=== PATIENT | female | born 1935 | race Caucasian/White ===

== ENCOUNTER 2016-09-01 23:12 | Inpatient (IN) | payer MEDICARE, BC ==
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
[2016-09-01] MEDS ORDERED: SODIUM CHLORIDE 0.9% 1,000 ML IV STA (23:40)
[2016-09-01] MEDS ORDERED: SODIUM CHLORIDE 0.9% 500 ML IV STA (23:40)
[2016-09-02 00:26] LABS: Basophils # (A) 0.1 k/uL (0-0.2); Basophils % (A) 0 %; CH 29.5; CHCM 32.9; Eosinophils % (A) 0 %; HDW 2.29; HGB 14.3 gm/dL (11.4-16.0); Luc # (Auto) 0.16; Luc % (Auto) 1; Lymphocytes # (A) 2.4 k/uL (1.0-4.8); Lymphocytes % (A) 18 %; MCH 29.9 pg (25.0-35.0); MCHC 33.1 g/dL (31.0-37.0); MCV 90.2 fL (80.0-100.0); Mean Platelet Volume 7.3; Monocytes # (A) 0.4 k/uL (0-1.0); Monocytes % (A) 3 %; Neutrophils # (A) 10.3 k/uL (1.3-7.7); Neutrophils % (A) 77 %; RBC 4.77 m/uL (3.80-5.40); RDW 14.1 % (11.5-15.5); WBC 13.4 k/uL (3.8-10.6); WBC (Perox) 13.17
[2016-09-02 00:33] LABS: Appearance,Urine Clear (Clear); Bacteria,Urine Rare /hpf; Bilirubin,Urine Negative (Negative); Calcium Oxalate Crystals,Urine Rare /hpf; Glucose,Urine (UA) Negative (Negative); Ketones,Urine Negative (Negative); Leukocyte Esterase,Urine Small (Negative); Mucus,Urine Few /hpf; Nitrite,Urine Negative (Negative); PH, Urine 5.5 (5.0-8.0); Particle Count 2770; Protein,Urine Negative (Negative); RBC,Urine <1 /hpf (0-5); Squamous Epithelial Cell,Urine 2 /hpf (0-4); UA Billing (MACRO vs. MICRO) MICRO; Urobilinogen,Urine <2.0 mg/dL (<2.0); WBC,Urine 3 /hpf (0-5)
[2016-09-02 00:35] LABS: INR 1.1 (<1.1); Partial Thromboplastin Time 22.9 sec (22.0-30.0); Prothrombin Time 10.8 sec (9.0-12.0)
[2016-09-02 00:41] LABS: ALT 38 U/L (9-52); AST 23 U/L (14-36); Acetaminophen <10.0 ug/mL; Alcohol <10 mg/dL; Alkaline Phosphatase 100 U/L (38-126); Anion Gap 14 mmol/L; Blood Urea Nitrogen 21 mg/dL (7-17); Calcium 10.7 mg/dL (8.4-10.2); Carbon Dioxide 24 mmol/L (22-30); Chloride 103 mmol/L (98-107); Glucose 112 mg/dL (74-99); Magnesium 2.1 mg/dL (1.6-2.3); Non-African American GFR(MDRD) >60 (>60 ml/min/1.73 sqM); Phosphorous 2.8 mg/dL (2.5-4.5); Potassium 4.1 mmol/L (3.5-5.1); Salicylate <1.0 mg/dL; Sodium 141 mmol/L (137-145); Total Bilirubin 1.8 mg/dL (0.2-1.3); Total Protein 8.4 g/dL (6.3-8.2)
[2016-09-02 00:55] LABS: Creatine Kinase 24 U/L (30-135)
[2016-09-02 01:09] LABS: Creatine Kinase MB 0.7 ng/mL (0.0-2.4); Troponin I <0.012 ng/mL (0.000-0.034)
[2016-09-02] MEDS ORDERED: ACETAMINOPHEN TAB 325 MG TAB PO PRN (03:59)
[2016-09-02] MEDS ORDERED: MAG HYDROX/AL HYDROX/SIMETH 30 ML CUP PO PRN (03:59)
[2016-09-02] MEDS ORDERED: ZIPRASIDONE 20 MG VIAL IM PRN (03:59)
[2016-09-02] MEDS ORDERED: MAGNESIUM HYDROXIDE 2,400 MG/10 ML CUP PO PRN (03:59)
[2016-09-02] MEDS ORDERED: LORazepam 1 MG TAB PO PRN (04:01)
[2016-09-02] MEDS ORDERED: LORazepam 2 MG/ML SYRINGE IM PRN (04:01)
[2016-09-02 05:21] VITALS: BMI 25.5
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
[2016-09-02] MEDS: LOSARTAN 50 MG TAB PO SCH (12:01)
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
[2016-09-02] MEDS ORDERED: QUEtiapine 25 MG TAB PO SCH (21:00)
[2016-09-03] MEDS: LOSARTAN 50 MG TAB PO SCH (09:41)
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
[2016-09-03] MEDS: DONEPEZIL 10 MG TAB PO SCH (20:18)
[2016-09-03] MEDS: DIVALPROEX 250 MG TABLET.DR PO SCH (20:18)
--- NOTE | 2016-09-04 08:14 | P.PN ---
Progress Note - Text Interval history: The patient is found in the [facility] seated alone watching TV. She reports her mood is fine. Again she is a partial historian due to her known diagnosis of major neurocognitive disorder. She feels that she slept well last night she indicates having a decreased appetite. She reports no symptoms of dizziness or physical pain. Staff report she has been able to ambulate without ataxia. No agitated behavior reported by staff over the evening hours. She states she has not been in contact with her and states "I don't want to see him". She is not aware of what medications she is taking but states she has been compliant. Again she does not appreciate her presenting symptoms to this mental health unit. Mental status exam: The patient is alert she is pleasant cooperative grooming is improved she is dressed in hospital gowns however. She is soft-spoken. Eye contact is appropriate. She has a smiling affect. She continues to endorse fearfulness regarding her . Insight and judgment are impaired. Cognitively she remains impaired. She is oriented to year as 2020, she was able to name the day of the week and the month. She could not recall my name despite me introducing myself again at the beginning of the session. She is not aware of her current location with the reason she was admitted. She demonstrates no verbal or physical aggressiveness. She indicates feeling safe here. Plan: We will continue the Depakote at bedtime. This is being used to stabilize mood symptoms that appeared manic in nature. Her states that she has been increasingly demonstrating more mood swings irritability and sexual preoccupation. She may require use of an antipsychotic. He states that she can be excessively fatigued at home. Her voiced a willingness to have her return home. Social work was asked to contact him to share information regarding community resources for in-home services/respite care. Vital signs reviewed. We will continue to monitor the patient for safety.
[2016-09-04] MEDS: LOSARTAN 50 MG TAB PO SCH (08:21)
--- NOTE | 2016-09-04 16:23 | P.PN ---
Progress Note - Text SUBJECTIVE: I reviewed the medical record, interviewed Ms. Wolf and discussed her treatment and treatment plan during team meeting. I am cross covering for Dr. Barreto. She is an 81-year-old woman who has a history of a major neurocognitive disorder. She presented to unit with paranoia, agitation and paranoid delusional beliefs. She complained of feeling tired but did not think it was related to her current medications. She remembered that Dr. Barreto was her psychiatrist. OBJECTIVE: She presented as a frail-appearing elderly female who was pleasant on approach. She was sitting comfortably on the bed in her room. She maintained eye contact and attended to the interview. She had no distinguishing features or prominent physical abnormalities. She had a bright facial expression. She was alert and oriented to person. She showed no abnormality of psychomotor activity. Her speech was nonspontaneous but had normal rate, rhythm and volume. Her affect was bright, stable and appropriate. She denied suicidal ideation or wishes. She did not express ideas reference or paranoid ideation. Her thinking was concrete and her associations were coherent and logical. She denied hallucinations and did not appear to responding to internal stimuli. ASSESSMENT: She is not agitated and not expressing paranoid believes. She may be experiencing sedation from the current dose of Depakote. PLAN: Continue inpatient hospitalization. Continue Depakote 250 mg at bedtime and her Aricept 10 mg at bedtime. criminal justice social worker to coordinate aftercare. Encourage participation in therapeutic groups and activities as tolerated. Evaluate clinical status response to treatment daily basis.
[2016-09-04] MEDS: DIVALPROEX 250 MG TABLET.DR PO SCH (21:34)
[2016-09-04] MEDS: DONEPEZIL 10 MG TAB PO SCH (21:34)
[2016-09-05] MEDS: LOSARTAN 50 MG TAB PO SCH (09:28)
--- NOTE | 2016-09-05 17:29 | P.PN ---
Progress Note - Text SUBJECTIVE: I reviewed the medical record and interviewed Ms. Wolf. I am cross covering for Dr. Barreto. She is an 81-year-old woman who has a history of a major neurocognitive disorder. She presented to unit with paranoia, agitation and paranoid delusional beliefs. She is pleasant on approach and denied problems or concerns. She was unable to explain the reason for hospitalization. OBJECTIVE: She presented as a frail-appearing elderly female who was pleasant on approach.. She maintained eye contact and attended to the interview. She had no distinguishing features or prominent physical abnormalities. She had a bright facial expression. She was alert and oriented to person, month and year. She does not remember the name of the hospital and appeared puzzled when I informed her that she is at a hospital. She showed no abnormality of psychomotor activity. Her speech was nonspontaneous but had normal rate, rhythm and volume. Her affect was bright, stable and appropriate. She denied suicidal ideation or wishes. She did not express ideas reference or paranoid ideation. Her thinking was concrete and her associations were coherent and logical. She denied hallucinations and did not appear to responding to internal stimuli. ASSESSMENT: She is not agitated and not expressing paranoid believes. PLAN: Continue inpatient hospitalization. Continue Depakote 250 mg at bedtime and her Aricept 10 mg at bedtime. molding utility worker to coordinate aftercare. Encourage participation in therapeutic groups and activities as tolerated. Evaluate clinical status response to treatment daily basis.
[2016-09-05] MEDS: DIVALPROEX 250 MG TABLET.DR PO SCH (20:50)
[2016-09-05] MEDS: DONEPEZIL 10 MG TAB PO SCH (20:50)
[2016-09-06] MEDS: LOSARTAN 50 MG TAB PO SCH (10:06)
--- NOTE | 2016-09-06 13:12 | P.PN ---
Progress Note - Text SUBJECTIVE: I reviewed the medical record and interviewed Ms. Wolf. I am cross covering for Dr. Barreto. She was reluctant to speak with me today. However, she denied problems or concerns. OBJECTIVE: She presented as a frail-appearing elderly female who was pleasant on approach.. She maintained eye contact and attended to the interview. She had no distinguishing features or prominent physical abnormalities. She had a bright facial expression. She was alert and oriented to person. She showed psychomotor slowing but no involuntary abnormal movements. Her speech was nonspontaneous and had decreased rate and volume. Her affect was blunted, stable and appropriate. She denied suicidal ideation or wishes. She did not express ideas reference or paranoid ideation. Her thinking was concrete and her associations were coherent and logical. She denied hallucinations and did not appear to responding to internal stimuli. ASSESSMENT: She is not agitated and not expressing paranoid beliefs or ideation. PLAN: Continue inpatient hospitalization. Continue Depakote 250 mg at bedtime and her Aricept 10 mg at bedtime. mop worker to coordinate aftercare. Encourage participation in therapeutic groups and activities as tolerated. Evaluate clinical status response to treatment daily basis.
[2016-09-06] MEDS: DIVALPROEX 250 MG TABLET.DR PO SCH (21:52)
[2016-09-06] MEDS: DONEPEZIL 10 MG TAB PO SCH (21:52)
[2016-09-07] MEDS: LOSARTAN 50 MG TAB PO SCH (10:16)
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
[2016-09-07] MEDS: DONEPEZIL 10 MG TAB PO SCH (21:52)
[2016-09-07] MEDS: DIVALPROEX 250 MG TABLET.DR PO SCH (21:52)
[2016-09-08] MEDS: LOSARTAN 50 MG TAB PO SCH (10:31)
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
[2016-09-08] MEDS ORDERED: DIVALPROEX 500 MG TABLET.DR PO SCH (21:00)
[2016-09-08] MEDS: DONEPEZIL 10 MG TAB PO SCH (22:32)
[2016-09-09] MEDS: LOSARTAN 50 MG TAB PO SCH (10:52)
--- NOTE | 2016-09-09 16:02 | P.PN ---
Progress Note - Text SUBJECTIVE: I reviewed the medical record and interviewed Ms. Wolf. I am cross covering for Dr. Barreto. She continues to maintain that she does not want to return home. When I asked if she were afraid of her she nodded her head "yes." She denied other problems or concerns. I explained that if she does not wish to return to her home then our only option would be an AFC home. She asked reasonable questions about AFC home. OBJECTIVE: She presented as a frail-appearing elderly female who was pleasant on approach.. She maintained eye contact and attended to the interview. She had no distinguishing features or prominent physical abnormalities. She had a t bright facial expression. She was alert and oriented to person. She showed psychomotor slowing but no involuntary abnormal movements. Her speech was spontaneous with decreased rate and volume. Her affect was bright, stable and appropriate. She denied suicidal ideation or wishes. She did not express ideas reference or paranoid ideation. Her thinking was concrete and her associations were coherent and logical. She denied hallucinations and did not appear to responding to internal stimuli. The psychologist social spoke with her son. He is perusing emergency guardianship. He does not want her discharge directly to an AFC home. She will live with him temporarily. ASSESSMENT: She continued to demonstrate impairments in orientation, concentration and memory consistent with the diagnoses of major neurocognitive disorder. She is paranoid about her and refusing to return home. PLAN: Continue inpatient hospitalization. Obtain serum valproic acid level. Cont. Depakote to 500 mg at bedtime. Continue Aricept 10 mg at bedtime. shore worker to assist family with AFC placement Encourage participation in therapeutic groups and activities as tolerated. Evaluate clinical status response to treatment daily basis.
[2016-09-09] MEDS ORDERED: VALPROIC ACID ORAL SOLN 250 MG/5 ML CUP PO SCH (21:00)
[2016-09-09] MEDS: DONEPEZIL 10 MG TAB PO SCH (21:02)
[2016-09-10] MEDS: LOSARTAN 50 MG TAB PO SCH (09:50)
[2016-09-10] MEDS ORDERED: VALPROIC ACID ORAL SOLN 250 MG/5 ML CUP PO SCH (12:03)
[2016-09-10] MEDS: DONEPEZIL 10 MG TAB PO SCH (21:20)
[2016-09-10] MEDS: VALPROIC ACID ORAL SOLN 250 MG/5 ML CUP PO SCH (21:20)
[2016-09-11] MEDS: LOSARTAN 50 MG TAB PO SCH (09:52)
--- NOTE | 2016-09-11 16:44 | P.PN ---
Progress Note - Text SUBJECTIVE: I reviewed the medical record and interviewed Ms. Wolf. I am cross covering for Dr. Barreto. She is pleasant and cooperative but continues to maintain that she does not want to return home. I explained that social workers in contact with her son. Her son is interested in her living with him temporarily but is looking for assistance from other family. She reported that she has difficulty with swallowing pills. OBJECTIVE: She presented as a frail-appearing elderly female who was pleasant on approach.. She maintained eye contact and attended to the interview. She had no distinguishing features or prominent physical abnormalities. She had a t bright facial expression. She was alert and oriented to person. She showed psychomotor slowing but no involuntary abnormal movements. Her speech was spontaneous with decreased rate and volume. Her affect was bright, stable and appropriate. She denied suicidal ideation or wishes. She did not express ideas reference or paranoid ideation. Her thinking was concrete and her associations were coherent and logical. She denied hallucinations and did not appear to responding to internal stimuli. Serum valproic acid level 77.5 ASSESSMENT: She continued to demonstrate impairments in orientation, concentration and memory consistent with the diagnoses of major neurocognitive disorder. She is paranoid about her and refusing to return home. PLAN: Continue inpatient hospitalization. Change Depakote to valproic acid syrup and decrease the dose to 250 mg at bedtime . Continue Aricept 10 mg at bedtime. distillery worker general to assist family with AFC placement Encourage participation in therapeutic groups and activities as tolerated. Evaluate clinical status response to treatment daily basis.
[2016-09-11] MEDS: VALPROIC ACID ORAL SOLN 250 MG/5 ML CUP PO SCH (20:39)
[2016-09-11] MEDS: DONEPEZIL 10 MG TAB PO SCH (20:39)
[2016-09-12] MEDS: LOSARTAN 50 MG TAB PO SCH (09:34)
--- NOTE | 2016-09-12 19:13 | P.PN ---
Progress Note - Text Date of service: 09/12/2016 Chief complaint: "I feel tired today" Subjective: The patient has been seeing today as follow-up, chart reviewed, case discussed with the treatment team. The patient has been seen in her room to go see wasn' t able to come to see me at my office. Patient stated that she feels very tired and sleepy because she didn't get enough sleep last night. Patient attributed her poor sleep to another patient who came last night and was very loud and the patient couldn't sleep at night. Patient endorses still depressed , minimize suicidal thoughts. The patient denies any manic symptoms including sustained period of time with elevated or irritable mood. The patient denies any auditory or visual hallucinations. Also the patient denies any paranoid ideation. Review of other systems: Patient denies any physical symptoms besides what has been mentioned above. No problems was presenting no chest pain reported today. Objective: Vitals has been reviewed. Mental status examination; Appearance: The patient appears stated age, or showed a disheveled, no specific features. Gait/posture: Patient was seen at bed, Normal arm was swinging: No abnormal movements. Attitude and behavior: Not engaged, not cooperative, poor eye contact. Motor activity: Decreased psychomotor activity Speech: Soft, low tone Mood: Depressed Affect: Constricted Thought form: goal-directed, linear, coherent. Thought content: Non-delusional, denies suicidal thoughts, denies homicidal thoughts, denies intentions or plans. Perception: Denies any auditory or visual hallucinations Attention: No impairment. Patient was able to repeat serial 7. Orientation: Patient patient was fully oriented to time place person and situation. Insight: Patient has limited insight about his psychiatric disorder. Judgment: Patient has limited judgment about his psychiatric treatment. Assessment: Psychosis NOS. Plan: Continue current management. Continue Depakote at bedtime as a mood stabilizer. Encourage patient for more engagement in treatment.
[2016-09-12] MEDS: VALPROIC ACID ORAL SOLN 250 MG/5 ML CUP PO SCH (21:35)
[2016-09-12] MEDS: DONEPEZIL 10 MG TAB PO SCH (21:35)
[2016-09-13] MEDS: LOSARTAN 50 MG TAB PO SCH (09:45)
--- NOTE | 2016-09-13 16:40 | P.PN ---
Progress Note - Text Date of service: 09/13/2016 Chief complaint: "I still feel tired, but I am up today" Subjective: The patient has been seen today as follow-up, chart reviewed, case discussed with the treatment team. Patient reports is still feel tired, and fatigue but she is slightly better than yesterday. Patient endorses still feeling depressed and feeling hopeless. Patient was very slow in her movement and she took very long time to answer questions. The patient denies suicidal or homicidal ideation. The patient denies auditory or visual hallucinations. Patient reports history of thyroid delusions but denies any current paranoid ideation. Patient reports has better sleep, and her appetite is better today. Review of other systems: Patient denies any physical symptoms besides what has been mentioned above. No breathing problems , no chest pain reported today. Objective: Vitals has been reviewed. Mental status examination; Appearance: The patient appears stated age, or showed a disheveled, no specific features. Gait/posture: Very slow gait, no arm was swinging while walking. Attitude and behavior: Not engaged, partially cooperative, poor eye contact. Motor activity: Decreased psychomotor activity Speech: Soft, low tone Mood: Depressed Affect: Constricted Thought form: goal-directed, linear, coherent. Thought content: Non-delusional, denies suicidal thoughts, denies homicidal thoughts, denies intentions or plans. Perception: Denies any auditory or visual hallucinations Orientation: Patient patient was fully oriented to time place person and situation. Insight: Patient has limited insight about his psychiatric disorder. Judgment: Patient has limited judgment about his psychiatric treatment. Assessment: Psychosis NOS. Plan: Continue current management. Continue Depakote at bedtime as a mood stabilizer. Aricept for cognitive impairment. Losartan for high blood pressure. Encourage patient for more engagement in treatment.
[2016-09-13] MEDS: DONEPEZIL 10 MG TAB PO SCH (21:34)
[2016-09-13] MEDS: VALPROIC ACID ORAL SOLN 250 MG/5 ML CUP PO SCH (21:34)
--- NOTE | 2016-09-14 09:43 | P.PN ---
Progress Note - Text Interval history: The patient is found in the hallway she follows me to an interview room. She reports that she is doing fine and that she would like to stay here for a long period of time. She states she does not want to return home and she reports she refused to visit from her . She has been speaking with her son. A Depakote level was obtained in my absence that result was reviewed progress notes were reviewed. She has no questions or concerns regarding her medication. Mental status exam: The patient is alert she is dressed in a bathrobe eye contact is appropriate she ambulates slowly but without ataxia. Eye contact is good. She does demonstrate a limited range of facial expression. She speaks softly. She continues to demonstrate significant cognitive impairment short- term memory is severely impaired. She continues to express some fearfulness of returning home. She demonstrates no verbal or physical aggressiveness. She is oriented to day the week as being "Wednesday". Insight and judgment are impaired. Plan: The patient will continue on her current psychotropic medications. I will confer with social work during team meeting regarding discharge planning. We will explore any placement opportunities other than returning home. Vital signs reviewed. Level results reviewed. We will continue to assess her for safety.
[2016-09-14] MEDS: LOSARTAN 50 MG TAB PO SCH (10:02)
[2016-09-14] MEDS: VALPROIC ACID ORAL SOLN 250 MG/5 ML CUP PO SCH (22:09)
[2016-09-14] MEDS: DONEPEZIL 10 MG TAB PO SCH (22:09)
[2016-09-15 06:52] VITALS: BP 130/69; PULSE 80; RESP 18; TEMP 97.9
[2016-09-15] MEDS: LOSARTAN 50 MG TAB PO SCH (10:06)
--- NOTE | 2016-09-15 11:24 | P.DS ---
Providers Date of admission: 09/02/16 03:34 Expected date of discharge: 09/15/16 Attending physician: Miguel Angel Barreto Consults: 09/02/16 04:04 Consult Physician Routine Consulting Provider: Costa Zarate Reason/Comments: h&p and medical follow-up, possible uti Do you want consulting provider notified?: Yes, Notify in am Primary care physician: Stated None - Discharge Diagnosis(es) (1) Unspecified psychosis Current Visit: Yes Status: Acute Priority: High (2) Major neurocognitive disorder Current Visit: Yes Status: Acute Priority: High Hospital Course: Brief summary of admission note: This patient is a 81-year-old female who was admitted to the mental health unit through the emergency room for acute symptoms of psychosis in the context of presumed major neurocognitive disorder. The patient was petitioned by a police surgeon. She apparently reported she was having an affair, she felt her was threatening her, she alleged her was trying to kill her. The patient presented demonstrating manic-like symptoms. She demonstrated fluctuation of mood and affect, she was sexually preoccupied. For full details please refer to the psychiatric evaluation dictated 09/02/2016. Summary of hospital course: The patient presented to the mental health unit in voluntarily. A second clinical certificate was completed. I believe the patient did defer at the deferral conference. Initially she was started on Seroquel at bedtime. After speaking with her it appears that she had been struggling with excessive sleep at home prior to the admission. We decided to discontinue the Seroquel and I initiated Depakote to control some of her behavioral symptoms that were manic-like in nature. The patient tolerated the medication Depakote level was obtained. The patient was pleasant and cooperative on the mental health unit. She does continue to demonstrate symptoms of confusion as part of her neurocognitive disorder. She was seen for a routine medical consultation. Her antihypertensive medication was continued. I spoke to her and son via phone on separate occasions to discuss the patient's past history and current care. Her son plans to take her back to his home with additional family support. He plans on having her follow up with a geriatric neurologist upon discharge. We discussed her current diagnosis medication and future medication options. Her son's questions were answered. Social work has had several conversations with family members as well as part of the treatment and discharge planning process. Mental status exam: The patient is an alert and pleasant cooperative female appearing her stated age. She seated calmly. She is soft-spoken. She states her mood is "good". Affect is congruent. She reports having no suicidal or homicidal ideation intent or plan. She does still seem to have some paranoid thinking regarding her . She reports feeling safe here in the hospital. She demonstrates no verbal or physical aggressiveness. She continues to demonstrate significant short-term memory impairment. She has some spontaneous speech but mainly answers questions asked. She demonstrates no flight of ideas. There can be some tangential thought. Impressions 1. Psychosis unspecified, major neurocognitive disorder 2. Hypertension 3. Psychosocial dysfunction secondary to major neurocognitive disorder Plan: The patient will be discharged from the mental health unit today she will reside with her son and he does have additional family support to care for the patient during the day. She will continue on Aricept 10 mg daily, Depakene syrup 250 mg at bedtime. Social work will arrange outpatient mental health follow-up. The patient will follow up with a primary care physician her son intends on having her follow up with a geriatric neurologist. We discussed the options in terms of medication management. We discussed that she may require use of an antipsychotic medication if her behavior does not stabilize. There is no imminent safety risk she is appropriate for transition to outpatient care. She is able to return to the emergency room with any acute safety concerns. Patient Condition at Discharge: Stable Plan - Discharge Summary New Discharge Prescriptions: Donepezil [Aricept] 10 mg PO HS #30 tab Losartan Potassium 100 mg PO DAILY #30 tablet Valproic Acid Oral Soln [Depakene Syrup] 250 mg PO HS #150 ml Discharge Medication List Donepezil [Aricept] 10 mg PO HS #30 tab 09/15/16 [Rx] Losartan Potassium 100 mg PO DAILY #30 tablet 09/15/16 [Rx] Valproic Acid Oral Soln [Depakene Syrup] 250 mg PO HS #150 ml 09/15/16 [Rx] Follow up Appointment(s)/Referral(s): None,Stated [Primary Care Provider] - 1 Week Patient Instructions/Handouts: Brief Psychotic Disorder (DC) Activity/Diet/Wound Care/Special Instructions: Take medications as prescribed. Notify the crisis line or your care provider if symptoms worsen. Crisis line no. . Regular diet. Activity as tolerated.
== END 2016-09-15 18:47 | disposition home or self-care (01) | DRG 885 ==
LOC: EC 23:12 → 3MHU 09-02 03:34
PROVIDERS: ADMIT Psychiatry & Neurology Psychiatry; ATTEND Psychiatry & Neurology Psychiatry
DX: F29 Unspecified psychosis not due to a substance or known physiological condition (principal); R45.851 Suicidal ideations; F01.50 Vascular dementia, unspecified severity, without behavioral disturbance, psychotic disturbance, mood disturbance, and anxiety; I10 Essential (primary) hypertension; R41.0 Disorientation, unspecified; F32.9 Major depressive disorder, single episode, unspecified; Z79.899 Other long term (current) drug therapy; Z82.49 Family history of ischemic heart disease and other diseases of the circulatory system
CPT/HCPCS: 36415; 80053; 80164; 80306; 80320; 81001; 82075; 82550; 82553; 83520; 83735; 84100; 84443; 84484; 85025; 85610; 85730; 87086; 99285

== ENCOUNTER 2016-10-17 05:08 | Inpatient (IN) | payer MEDICARE, BC ==
[2016-10-17] MEDS ORDERED: ASPIRIN 81 MG CHEW PO STA (05:48)
--- NOTE | 2016-10-17 05:51 | ED ---
General Adult HPI - General Chief complaint: Arrhythmia/Palpitations Stated complaint: Arrhythmia Time Seen by Provider: 10/17/16 05:19 Source: patient, family, EMS, RN notes reviewed Mode of arrival: EMS Limitations: no limitations - History of Present Illness Initial comments: patient is a pleasant 81-year-old female presenting to the emergency Department as a transfer from [facility]. helps provide history. Patient was shaky todayafter taking her medication. Patient went to the hospital there and was found to have heart rate in the 20s. Patient was provided atrophy with conversion of rhythm to A. fib. Patient was found to have urinary tract infection and was provided Rocephin. Patient did have some nausea and vomiting earlier. Patient is currently symptom-free and has no complaints - Related Data Previous Rx's Medication Instructions Recorded Donepezil [Aricept] 10 mg PO HS #30 tab 09/15/16 Losartan Potassium 100 mg PO DAILY #30 tablet 09/15/16 Valproic Acid Oral Soln [Depakene 250 mg PO HS #150 ml 09/15/16 Syrup] Allergies Allergy/AdvReac Type Severity Reaction Status Date / Time adhesive AdvReac Rash/Hives Verified 09/02/16 05:24 Review of Systems ROS Statement: Those systems with pertinent positive or pertinent negative responses have been documented in the HPI. ROS Other: All systems not noted in ROS Statement are negative. Constitutional: Reports: chills Eyes: Denies: eye pain ENT: Denies: ear pain Respiratory: Denies: cough, dyspnea Cardiovascular: Denies: chest pain, palpitations Endocrine: Denies: fatigue Gastrointestinal: Reports: nausea, vomiting. Denies: abdominal pain Genitourinary: Denies: dysuria Musculoskeletal: Denies: back pain Skin: Denies: rash Neurological: Denies: weakness Past Medical History Past Medical History: Dementia, Hypertension History of Any Multi-Drug Resistant Organisms: None Reported Past Surgical History: Appendectomy, Section Additional Past Surgical History / Comment(s): pt having delusional thoughts, unsure if these surgeries are correct Past Anesthesia/Blood Transfusion Reactions: No Reported Reaction Past Psychological History: No Psychological Hx Reported Smoking Status: Never smoker Past Alcohol Use History: None Reported Additional Past Alcohol Use History / Comment(s): patient is a lifelong nonsmoker. No medical marijuana, marijuana, street drug use. She apparently lives at home with her . Past Drug Use History: None Reported - Past Family History Father Additional Family Medical History / Comment(s): Father at age 76 possibly from a myocardial infarction. Mother Additional Family Medical History / Comment(s): Mother at age 62 from a myocardial infarction. Brother(s) Additional Family Medical History / Comment(s): Patient has a total of 3 brothers and 1 sister who've all . Patient is unable to provide details. Patient has 1 son. General Exam Limitations: no limitations General appearance: alert, in no apparent distress Head exam: Present: atraumatic Eye exam: Present: normal appearance, PERRL ENT exam: Present: normal oropharynx Neck exam: Present: normal inspection Respiratory exam: Present: normal lung sounds bilaterally Cardiovascular Exam: Present: tachycardia, irregular rhythm GI/Abdominal exam: Present: soft. Absent: tenderness Extremities exam: Present: normal inspection Neurological exam: Present: alert. Absent: motor sensory deficit Psychiatric exam: Present: normal affect, normal mood Skin exam: Present: normal color Course Vital Signs 10/17/16 05:25 Temperature 96.8 F L Pulse Rate 127 H Respiratory 16 Rate Blood Pressure 109/55 O2 Sat by Pulse 96 Oximetry - Reevaluation(s) Reevaluation #1: 10/17/16 05:50 chart reviewed from [facility] 10/17/16 05:51 patient does not meet sepsis criteria as heart rate is related to atrial fibrillation. 10/17/16 06:38 Repeat EKG shows normal sinus rhythm at 77. MA 190. QRS 84. QT 412. QTC 466. Normal axis. Normal QRS. nonspecific T waves. 10/17/16 06:39 Dr. Niall martin and will admit for hospital call. EKG Findings - EKG Comments: EKG Findings:: A. fib with RVR, rate 118. QRS 82. QT 346. QTc 44. Normal axis. Normal QRS. Nonspecific ST-T. Medical Decision Making - Lab Data Result diagrams: 10/17/16 06:03 Lab Results 10/17/16 Range/Units 06:03 WBC 11.2 H (3.8-10.6) k/uL RBC 4.04 (3.80-5.40) m/uL Hgb 12.3 (11.4-16.0) gm/dL Hct 36.9 (34.0-46.0) % MCV 91.3 (80.0-100.0) fL MCH 30.5 (25.0-35.0) pg MCHC 33.4 (31.0-37.0) g/dL RDW 13.4 (11.5-15.5) % Plt Count 169 (150-450) k/uL Neutrophils % 84 % Lymphocytes % 12 % Monocytes % 3 % Eosinophils % 0 % Basophils % 1 % Neutrophils # 9.4 H (1.3-7.7) k/uL Lymphocytes # 1.3 (1.0-4.8) k/uL Monocytes # 0.4 (0-1.0) k/uL Eosinophils # 0.0 (0-0.7) k/uL Basophils # 0.1 (0-0.2) k/uL - Radiology Data Interpreted by me: chest x-ray reviewed from [facility]. Disposition Clinical Impression: Atrial fibrillation, Urinary tract infection Disposition: ADMITTED IP TO THIS [facility] Time of Disposition: 06:39
[2016-10-17] MEDS: SODIUM CHLORIDE 0.9% 1,000 ML IV STA ×2 (06:36→10:28)
[2016-10-17 06:37] LABS: Basophils # (A) 0.1 k/uL (0-0.2); Basophils % (A) 1 %; CH 30.1; CHCM 33.1; Eosinophils % (A) 0 %; HCT 36.9 % (34.0-46.0); HDW 2.37; HGB 12.3 gm/dL (11.4-16.0); Luc # (Auto) 0.07; Luc % (Auto) 1; Lymphocytes # (A) 1.3 k/uL (1.0-4.8); Lymphocytes % (A) 12 %; MCH 30.5 pg (25.0-35.0); MCHC 33.4 g/dL (31.0-37.0); MCV 91.3 fL (80.0-100.0); Mean Platelet Volume 7.8; Monocytes # (A) 0.4 k/uL (0-1.0); Monocytes % (A) 3 %; Neutrophils # (A) 9.4 k/uL (1.3-7.7); Neutrophils % (A) 84 %; RBC 4.04 m/uL (3.80-5.40); RDW 13.4 % (11.5-15.5); WBC 11.2 k/uL (3.8-10.6); WBC (Perox) 11.59
[2016-10-17] MEDS ORDERED: NALOXONE 0.4 MG/ML 1 ML VIAL IV PRN (06:40)
[2016-10-17] MEDS ORDERED: ACETAMINOPHEN TAB 325 MG TAB PO PRN (06:40)
[2016-10-17 06:52] LABS: INR 1.1 (<1.1); Prothrombin Time 10.6 sec (9.0-12.0)
[2016-10-17 06:53] LABS: ALT 25 U/L (9-52); AST 19 U/L (14-36); Alkaline Phosphatase 74 U/L (38-126); Anion Gap 8 mmol/L; Blood Urea Nitrogen 19 mg/dL (7-17); Calcium 8.7 mg/dL (8.4-10.2); Carbon Dioxide 24 mmol/L (22-30); Chloride 114 mmol/L (98-107); Glucose 111 mg/dL (74-99); Magnesium 1.8 mg/dL (1.6-2.3); Non-African American GFR(MDRD) >60 (>60 ml/min/1.73 sqM); Potassium 4.1 mmol/L (3.5-5.1); Sodium 146 mmol/L (137-145); Total Bilirubin 0.6 mg/dL (0.2-1.3); Total Protein 6.4 g/dL (6.3-8.2)
[2016-10-17 06:55] LABS: Partial Thromboplastin Time 21.5 sec (22.0-30.0)
[2016-10-17 07:34] LABS: Creatine Kinase MB 0.6 ng/mL (0.0-2.4); Troponin I 0.033 ng/mL (0.000-0.034)
--- NOTE | 2016-10-17 08:30 | P.CRDCN ---
History of Present Illness Consult date: 10/17/16 History of present illness: This is a 81-year-old female who was transferred from [facility] with altered mental status. Patient has advanced dementia and unable to give meaningful information. Apparently when she was at [facility]. Patient was found to be bradycardic with heart rates in the 40s. She seemed to be in atrial fibrillation with slow ventricular response. Subsequently EKG showed evidence of A. fib with RVR. Upon coming to this emergency room, Patient converted back to sinus rhythm. At the time of my examination patient is alert, seems to be pleasant and oriented to the place. She claimed that she passed out at home. However, the history from [facility] is not consistent with that. We're asked to see the patient because of tachybradycardia syndrome. She doesn't have any history of previous hypertension, diabetes, or previous myocardial infarctions. Only information is available from August of this year when she was admitted to the hospital with altered mental status and a diagnosis of psychosis. I would recommend that we treat her with intravenous heparin at this time until we get more information. Will get an echocardiogram to assess LV function. We'll discuss with the family regarding long-term anti-cognition therapy and also possible permanent pacemaker implantation. She is also being treated for possible UTI, at this time. Review of Systems Not obtained Past Medical History Past Medical History: Dementia, Hypertension History of Any Multi-Drug Resistant Organisms: None Reported Past Surgical History: Appendectomy, Section Additional Past Surgical History / Comment(s): pt having delusional thoughts, unsure if these surgeries are correct Past Anesthesia/Blood Transfusion Reactions: No Reported Reaction Past Psychological History: No Psychological Hx Reported Smoking Status: Never smoker Past Alcohol Use History: None Reported Additional Past Alcohol Use History / Comment(s): patient is a lifelong nonsmoker. No medical marijuana, marijuana, street drug use. She apparently lives at home with her . Past Drug Use History: None Reported - Past Family History Father Additional Family Medical History / Comment(s): Father at age 76 possibly from a myocardial infarction. Mother Additional Family Medical History / Comment(s): Mother at age 62 from a myocardial infarction. Brother(s) Additional Family Medical History / Comment(s): Patient has a total of 3 brothers and 1 sister who've all . Patient is unable to provide details. Patient has 1 son. Medications and Allergies Allergies Allergy/AdvReac Type Severity Reaction Status Date / Time adhesive AdvReac Rash/Hives Verified 09/02/16 05:24 Physical Exam Vitals: Vital Signs Temp Pulse Resp BP Pulse Ox 10/17/16 07:23 98.1 F 73 18 116/55 94 L GENERAL EXAM: Patient is alert and oriented and doesn't appear to be in any acute distress HEENT: Normocephalic. Normal reaction of pupils, equal size, normal range of extraocular motion. No erythema or exudates in the throat. NECK: No masses, no nuchal rigidity. CHEST: No chest wall deformity. LUNGS: Equal air entry with no crackles or wheeze. HEART: S1 and S2 normal with no audible mumurs or gallops. Regular rhythm ABDOMEN: No hepatosplenomegaly, normal bowel sounds, no guarding or rigidity. SKIN: No rashes CENTRAL NERVOUS SYSTEM: No focal deficits. EXTREMITIES: No cyanosis, clubbing or edema. Results 10/17/16 06:03 10/17/16 06:30 Current Medications Generic Name Dose Route Start Last Admin Trade Name Freq PRN Reason Stop Dose Admin Acetaminophen 650 mg 10/17/16 06:40 Tylenol Tab PO Q6HR PRN Mild Pain or Fever > 100.5 Sodium Chloride 1,000 mls @ 75 mls/hr 10/17/16 05:48 10/17/16 06:36 Saline 0.9% IV 10/17/16 19:07 75 mls/hr .[id number] STA Administration Sodium Chloride 1,000 mls @ 20 mls/hr 10/17/16 06:45 Saline 0.9% IV .Q24H RAMIREZ Ceftriaxone Sodium 1,000 mg/ 50 mls @ 100 mls/hr 10/17/16 09:00 Sodium Chloride IVPB Q24HR RAMIREZ Naloxone HCl 0.2 mg 10/17/16 06:40 Narcan IV Q2M PRN Opioid Reversal EKG Interpretations (text) Initial EKG showed atrial fibrillation with a rapid ventricular response. Subsequent EKG showed sinus rhythm. Assessment and Plan (1) Sick sinus syndrome Status: Acute (2) Urinary tract infection Status: Acute Plan: I will recommend heparin protocol. Echocardiogram with Doppler. Continue to monitor for rhythm. Discuss with family regarding long-term anticoagulation and possible permanent pacemaker implantation. Prognosis is guarded. Rest of the care as for the primary care physician.
[2016-10-17] MEDS ORDERED: HEPARIN SODIUM,PORCINE 5,000 UNIT/ML 1 ML VIAL IV PRN (09:00)
[2016-10-17] MEDS ORDERED: HEPARIN SODIUM,PORCINE 5,000 UNIT/ML 1 ML VIAL IV ONE (09:00)
[2016-10-17] MEDS: HEPARIN SODIUM,PORCINE/D5W PMX 25,000 UNIT in DEXTROSE/WATER 1 500ML.BAG IV SCH (10:28)
[2016-10-17] MEDS: SODIUM CHLORIDE 0.9% 1,000 ML IV SCH (10:34)
[2016-10-17] MEDS ORDERED: ALPRAZolam 0.25 MG TAB PO PRN (15:42)
[2016-10-17] MEDS: LOSARTAN 50 MG TAB PO SCH (15:59)
[2016-10-17] MEDS ORDERED: RIVASTIGMINE TARTRATE 4.5 MG PO SCH (17:30)
[2016-10-17 18:14] LABS: Appearance,Urine Cloudy (Clear); Bacteria,Urine Rare /hpf; Bilirubin,Urine Negative (Negative); Glucose,Urine (UA) Negative (Negative); Ketones,Urine Negative (Negative); Leukocyte Esterase,Urine Large (Negative); Mucus,Urine Rare /hpf; Nitrite,Urine Negative (Negative); PH, Urine 5.5 (5.0-8.0); Particle Count 4086; Protein,Urine Negative (Negative); RBC,Urine 1 /hpf (0-5); Squamous Epithelial Cell,Urine 1 /hpf (0-4); UA Billing (MACRO vs. MICRO) MICRO; Urobilinogen,Urine <2.0 mg/dL (<2.0); WBC,Urine 40 /hpf (0-5)
[2016-10-18] MEDS: VALPROIC ACID ORAL SOLN 250 MG/5 ML CUP PO SCH ×2 (01:40→19:52)
[2016-10-18] MEDS: MELATONIN 3 MG TABLET PO SCH ×2 (01:40→19:51)
[2016-10-18] MEDS: DONEPEZIL 10 MG TAB PO SCH ×2 (01:40→19:51)
[2016-10-18 06:25] LABS: Basophils # (A) 0.1 k/uL (0-0.2); Basophils % (A) 1 %; CH 29.3; CHCM 31.4; Eosinophils # (A) 0.1 k/uL (0-0.7); Eosinophils % (A) 1 %; HCT 35.7 % (34.0-46.0); HDW 2.23; HGB 11.3 gm/dL (11.4-16.0); Luc # (Auto) 0.12; Luc % (Auto) 2; Lymphocytes # (A) 3.6 k/uL (1.0-4.8); Lymphocytes % (A) 46 %; MCH 29.8 pg (25.0-35.0); MCHC 31.7 g/dL (31.0-37.0); MCV 93.9 fL (80.0-100.0); Monocytes # (A) 0.2 k/uL (0-1.0); Monocytes % (A) 3 %; Neutrophils # (A) 3.7 k/uL (1.3-7.7); Neutrophils % (A) 48 %; RDW 13.8 % (11.5-15.5); WBC 7.8 k/uL (3.8-10.6); WBC (Perox) 8.03
[2016-10-18 06:46] LABS: Anion Gap 8 mmol/L; Blood Urea Nitrogen 15 mg/dL (7-17); Carbon Dioxide 25 mmol/L (22-30); Chloride 110 mmol/L (98-107); Glucose 105 mg/dL (74-99); Non-African American GFR(MDRD) >60 (>60 ml/min/1.73 sqM); Potassium 3.3 mmol/L (3.5-5.1); Sodium 143 mmol/L (137-145)
[2016-10-18] MEDS: LOSARTAN 50 MG TAB PO SCH (08:26)
--- NOTE | 2016-10-18 09:23 | ECHOF ---
Referral Reason:Chest pain and cardiomyopathy MEASUREMENTS -------- HEIGHT: 152.4 cm WEIGHT: 59.4 kg BP: IVSd: 1.0 cm (0.6 - 1.1) LVIDd: 4.1 cm (3.9 - 5.3) LVPWd: 1.1 cm (0.6 - 1.1) LVIDs: 2.6 cm LA Diam: 3.0 cm (2.7 - 3.8) RVIDd: 2.1 cm (< 3.3) Ao Diam: 2.8 cm (2.0 - 3.7) LA Diam: 4.2 cm (2.7 - 3.8) AV Cusp: 1.7 cm (1.5 - 2.6) EPSS: 0.3 cm MV E Bonifacio: 0.87 m/s MV DecT: 258 ms MV A Bonifacio: 0.93 m/s MV E/A Ratio: 0.94 RAP: 5.00 mmHg RVSP: 24.79 mmHg MV EF SLOPE: 92.08 mm/s (70 - 150) MV EXCURSION: 14.64 mm (> 18.000) FINDINGS -------- Sinus rhythm. This was a technically good study. There is mild concentric left ventricular hypertrophy. Overall left ventricular systolic function is low-normal with, an EF between 50 - 55 %. The right ventricle is normal in size. The left atrial size is normal. The right atrial size is normal. There is mild aortic valve sclerosis. There is mild aortic regurgitation. Mild mitral annular calcification present. Mild mitral regurgitation is present. Mild tricuspid regurgitation present. There is no evidence of pulmonary hypertension. The right ventricular systolic pressure, as measured by Doppler, is 24.79mmHg. There is no pulmonic regurgitation present. The aortic root size is normal. Echo free space may represent effusion or a pericardial fat pad. CONCLUSIONS -------- 1. There is mild concentric left ventricular hypertrophy. 2. There is no pulmonic regurgitation present. 3. Echo free space may represent effusion or a pericardial fat pad. 4. Overall left ventricular systolic function is low-normal with, an EF between 50 - 55 %. 5. There is mild aortic valve sclerosis. 6. There is mild aortic regurgitation. 7. Mild mitral annular calcification present. 8. Mild mitral regurgitation is present. 9. Mild tricuspid regurgitation present. 10. There is no evidence of pulmonary hypertension. 11. The right ventricular systolic pressure, as measured by Doppler, is 24.79mmHg. LOADERS: Enma Banks RDCS
--- NOTE | 2016-10-18 11:14 | HP ---
DATE OF ADMISSION: CHIEF COMPLAINTS: Shaking and as well as atrial fibrillation. HISTORY OF PRESENT ILLNESS: 81-year-old female with the past history of dementia, hypertension, resection, being followed by primary care doctor . Was noted to have shaking associated with atrial fibrillation. There is no history of any fever. No history of headache or loss of consciousness. The patient has dementia, unable to give discussion with staff as well as review of the chart. PAST MEDICAL HISTORY: History of dementia, hypertension, resection. MEDICATIONS PRIOR TO ADMISSION: Depakene 250 mg p.o. q.h.s., Exelon 4.5 mg b.i.d., losartan 100 mg p.o. daily, FAMILY HISTORY: History of myocardial infarction in father. SOCIAL HISTORY: No history of smoking. No history of alcohol intake. REVIEW OF SYSTEMS: Could not be taken as the patient has dementia. PHYSICAL EXAMINATION: GENERAL: The patient is alert and oriented times one. VITAL SIGNS: Pulse is 56, blood pressure 110/52, respiratory rate 20, temperature 97.6, pulse ox 97% on room air. HEENT: Conjunctivae normal. NECK: No jugular venous distention. HEART: S1 and S2, muffled. RESPIRATORY: Breath sounds diminished at the bases. Scattered rhonchi, no crackles. ABDOMEN: Soft, no tenderness. EXTREMITIES: Legs no edema, no swelling. NERVOUS: Higher function as noted. Moves all for limits. No focal deficits. LABS: WBC 11.2, sodium 140, potassium 4.1, troponin 0.193. ASSESSMENT: 1. Atrial fibrillation with fast ventricular rate. 2. Urinary tract infection with possible sepsis. 3. Change in mental status possibly secondary to sepsis with acute on chronic encephalopathy. 4. Increased WBC. 5. Hypernatremia secondary to dehydration. 6. Increased random blood sugar. 7. Troponin 0.193, indeterminate, rule out acute non-Q-wave myocardial infarction. 8. History of dementia. 9. Hypertension. 10. History status post appendectomy. 11. No code, no CPR, no vent. Recommendations and discussion: This 81-year-old woman who presented with multiple complex medical issues, we will monitor the patient closely. Continue the current medications, continue with the symptomatic treatment. Otherwise, I would also recommend Rocephin. Resume the home medications. Guarded prognosis because of multiple complex medical issues. Further recommendations to follow. MTDD
[2016-10-18] MEDS: HEPARIN SODIUM,PORCINE/D5W PMX 25,000 UNIT in DEXTROSE/WATER 1 500ML.BAG IV SCH (18:35)
[2016-10-18] MEDS: SODIUM CHLORIDE 0.9% 1,000 ML IV SCH (19:51)
[2016-10-19] MEDS ORDERED: Potassium Replacement Protocol 1 EACH MISC MISCELLANE PRN (02:46)
[2016-10-19] MEDS: POTASSIUM CHLORIDE ER 20 MEQ TAB.ER PO SCH ×2 (06:18→09:20)
[2016-10-19 06:51] LABS: Basophils # (A) 0.1 k/uL (0-0.2); Basophils % (A) 1 %; CH 29.8; CHCM 31.7; Eosinophils # (A) 0.2 k/uL (0-0.7); Eosinophils % (A) 2 %; HCT 39.3 % (34.0-46.0); HDW 2.23; HGB 12.5 gm/dL (11.4-16.0); Luc % (Auto) 1; Lymphocytes # (A) 3.4 k/uL (1.0-4.8); Lymphocytes % (A) 41 %; MCHC 31.7 g/dL (31.0-37.0); MCV 94.4 fL (80.0-100.0); Mean Platelet Volume 7.5; Monocytes # (A) 0.3 k/uL (0-1.0); Monocytes % (A) 3 %; Neutrophils # (A) 4.3 k/uL (1.3-7.7); Neutrophils % (A) 52 %; RBC 4.16 m/uL (3.80-5.40); RDW 13.7 % (11.5-15.5); WBC 8.3 k/uL (3.8-10.6); WBC (Perox) 8.73
[2016-10-19 07:06] LABS: Anion Gap 8 mmol/L; Blood Urea Nitrogen 13 mg/dL (7-17); Calcium 9.3 mg/dL (8.4-10.2); Carbon Dioxide 27 mmol/L (22-30); Chloride 108 mmol/L (98-107); Glucose 91 mg/dL (74-99); Non-African American GFR(MDRD) >60 (>60 ml/min/1.73 sqM); Potassium 3.8 mmol/L (3.5-5.1); Sodium 143 mmol/L (137-145)
[2016-10-19] MEDS: LOSARTAN 50 MG TAB PO SCH (09:21)
[2016-10-19] MEDS: SODIUM CHLORIDE 0.9% 1,000 ML IV SCH (09:21)
[2016-10-19] MEDS: HEPARIN SODIUM,PORCINE/D5W PMX 25,000 UNIT in DEXTROSE/WATER 1 500ML.BAG IV SCH ×2 (09:31→23:44)
--- NOTE | 2016-10-19 10:56 | PN ---
Mrs. Wolf is an 81-year-old female with history of dementia who was admitted to the hospital with altered mental status and shaking. She actually was admitted originally to [facility] and was found to have bradycardia there. She was subsequently transferred to this hospital. The patient had A. fib with RVR initially and subsequently converted to sinus rhythm. Patient is alert, does not appear to be in any acute distress, but she is disoriented, has been in sinus rhythm since admission. Physical examination reveals an 81-year-old female who is alert, oriented, does not appear to be in acute distress. LUNGS: Clear. HEART: Is regular. No JVD. No peripheral edema. Lab values showed a hemoglobin of 11.5. Electrolytes showed mild hypokalemia at 3.3. BUN and creatinine are normal. Her troponin values are elevated from 0.33 up to 2.235. Echocardiogram showed normal LV function. FINAL IMPRESSION: 1. Atrial fibrillation with rapid ventricular response. 2. Tachybrady syndrome. 3. Dementia. 4. Possible urinary tract infection. PLAN: At this point, continue current medical therapy. Patient should be considered for permanent pacemaker implantation if is agreeable to the family. Patient is also on heparin. We will discuss with family when they are available and make decision regarding permanent pacemaker implantation.
--- NOTE | 2016-10-19 11:29 | PN ---
DATE OF SERVICE: 10/18/2016 This 81-year-old woman who was admitted with atrial fibrillation fast ventricular rate is being closely monitored. Patient also has UTI with sepsis also. No chest pain or palpitations. No fever. On exam, alert and oriented x3. Pulse 68, blood pressure 172/74, respirations 18, temperature 98.9, pulse ox 100% on room air. HEENT: Conjunctivae normal. NECK: No jugular venous distention. CARDIOVASCULAR: S1 and S2, muffled. Irregular. RESPIRATORY: Breath sounds diminished at the bases. No rhonchi, no crackles. ABDOMEN: Soft, nontender. No mass palpable. LEGS: No edema, no swelling. NERVOUS SYSTEM: No focal deficits. LABS: Hemoglobin 11.3. Potassium 3.3. Troponin 0.235. UA noted. ASSESSMENT: 1. Atrial fibrillation with fast ventricular rate. 2. Urinary tract infection with possible sepsis, present on admission. 3. Troponin 0.235, possible acute non-ST segment elevation myocardial infarction. 4. Change in mental status, possibly secondary to sepsis with acute on chronic encephalopathy, metabolic. 5. Increased WBC. 6. Hypernatremia secondary to dehydration. 7. Increased random blood sugar. 8. History of dementia. 9. Hypertension, essential. 10. History of appendectomy. 11. NO CODE, NO CPR, NO VENT. RECOMMENDATIONS AND DISCUSSION: This 81-year-old woman who presented with multiple complex medical issues, we will monitor the patient closely. Continue the current medications. Continue symptomatic treatment. I recommended the patient to closely follow with cardiology, empiric antibiotics. Continue the rest of the medications. Repeat labs. Guarded prognosis because of multiple complex medical issues. Further recommendations to follow.
[2016-10-19] MEDS: METOPROLOL TARTRATE 12.5 MG TAB PO SCH (13:51)
--- NOTE | 2016-10-19 14:13 | P.PN ---
Subjective Principal diagnosis: Mental status changes This is a 81-year-old female who was transferred from [facility] with altered mental status.Patient was found to be bradycardic with heart rates in the 40s. She seemed to be in atrial fibrillation with slow ventricular response. Subsequently EKG showed evidence of A. fib with RVR. Upon coming to this emergency room, Patient converted back to sinus rhythm. At the time of my examination patient is alert, seems to be pleasant and oriented to the place. Heart rate today is remaining in the 60s, normal sinus rhythm. She was seen in round today by Dr. Damon, initiated on 12-1/2 mg of metoprolol tartrate. At pressure 150/60. Potassium today 3.8, creatinine 0.6, TSH normal. Objective - Vital Signs Vital signs: Vital Signs Temp 97.6 F 10/19/16 08:00 Pulse 62 10/19/16 12:00 Resp 18 10/19/16 12:00 BP 149/65 10/19/16 12:00 Pulse Ox 95 10/19/16 12:00 Intake & Output 10/18/16 10/19/16 10/19/16 18:59 06:59 18:59 Intake Total 1432.474 577.85 947.902 Output Total 900 650 650 Balance 532.474 -72.15 297.902 Weight 61.8 kg Intake: IV 411.6 377.85 276 Heparin Sodium,Porcine/ 171.6 157.85 136 D5w Pmx 25,000 unit In Dextrose/Water 1 500ml. bag @ 12 UNITS/KG/HR 14. 35 mls/hr IV .Q24H RAMIREZ Rx #:[id number] Sodium Chloride 0.9% 1, 240 220 140 000 ml @ 20 mls/hr IV . Q24H RAMIREZ Rx#:[id number] Intake, IV Titration 460.874 311.902 Amount Heparin Sodium,Porcine/ 460.874 211.902 D5w Pmx 25,000 unit In Dextrose/Water 1 500ml. bag @ 12 UNITS/KG/HR 14. 35 mls/hr IV .Q24H RAMIREZ Rx #:[id number] cefTRIAXone 1,000 mg In 100 Sodium Chloride 0.9% 50 ml @ 100 mls/hr IVPB Q24HR RAMIREZ Rx#:[id number] Oral 560 200 360 Output: Urine 900 650 650 Other: Voiding Method Toilet # Voids 2 1 - Exam PHYSICAL EXAMINATION: HEENT: Head is atraumatic, normocephalic. Pupils equal, round. Neck is supple. There is no elevated jugular venous pressure. HEART EXAMINATION: Heart S1, S2 normal. No murmur or gallop heard. CHEST EXAMINATION: Lungs are clear to auscultation and precussion. No chest wall tenderness is noted on palpation or with deep breathing. ABDOMEN: Soft, nontender. Bowel sounds are heard. No organomegaly noted. EXTREMITIES: 2+ peripheral pulses with no evidence of peripheral edema and no calf tenderness noted. NEUROLOGIC patient is awake, alert and oriented -1. . - Labs CBC & Chem 7: 10/19/16 06:35 10/19/16 06:35 Labs: Abnormal Lab Results - Last 24 Hours (Table) 10/19/16 10/19/16 Range/Units 06:35 06:35 APTT 41.1 H (22.0-30.0) sec Chloride 108 H (98-107) mmol/L Assessment and Plan (1) Paroxysmal a-fib Status: Acute (2) Bradycardia Status: Acute (3) HTN (hypertension) Status: Acute (4) Urinary tract infection Status: Acute (5) Acute psychosis Status: Acute Plan: From cardiology's perspective, we will continue to monitor for any significant tachybradycardia syndrome. We will initiate the patient on metoprolol tartrate 12-1/2 mg one tablet by mouth daily. We will also check into Eliquis see if the patient has coverage. At this time, no current plans for pacemaker. DNP note has been reviewed, I agree with a documented findings and plan of care. Patient was seen and examined.
[2016-10-19 21:35] VITALS: RESP 18
[2016-10-19] MEDS: VALPROIC ACID ORAL SOLN 250 MG/5 ML CUP PO SCH (22:22)
[2016-10-19] MEDS: DONEPEZIL 10 MG TAB PO SCH (22:23)
[2016-10-19] MEDS: MELATONIN 3 MG TABLET PO SCH (22:23)
[2016-10-20 07:04] LABS: Basophils % (A) 1 %; CHCM 32.4; Eosinophils # (A) 0.2 k/uL (0-0.7); Eosinophils % (A) 3 %; HCT 37.6 % (34.0-46.0); HDW 2.28; HGB 12.1 gm/dL (11.4-16.0); Luc # (Auto) 0.13; Luc % (Auto) 2; Lymphocytes # (A) 3.2 k/uL (1.0-4.8); Lymphocytes % (A) 44 %; MCH 29.9 pg (25.0-35.0); MCHC 32.2 g/dL (31.0-37.0); MCV 92.9 fL (80.0-100.0); Mean Platelet Volume 7.4; Monocytes # (A) 0.3 k/uL (0-1.0); Monocytes % (A) 4 %; Neutrophils # (A) 3.4 k/uL (1.3-7.7); Neutrophils % (A) 47 %; RBC 4.05 m/uL (3.80-5.40); RDW 13.8 % (11.5-15.5); WBC 7.3 k/uL (3.8-10.6); WBC (Perox) 7.39
[2016-10-20 07:34] LABS: Anion Gap 7 mmol/L; Blood Urea Nitrogen 10 mg/dL (7-17); Calcium 9.4 mg/dL (8.4-10.2); Carbon Dioxide 26 mmol/L (22-30); Chloride 108 mmol/L (98-107); Glucose 87 mg/dL (74-99); Non-African American GFR(MDRD) >60 (>60 ml/min/1.73 sqM); Potassium 3.8 mmol/L (3.5-5.1); Sodium 141 mmol/L (137-145)
--- NOTE | 2016-10-20 07:50 | PN ---
DATE OF SERVICE: 10/19/2016 This 81-year-old woman was admitted with atrial fibrillation and fast ventricular rate. Also had UTI with sepsis also. Patient being closely monitored. Cultures are negative. No chest pain, no palpitation, no fever. On exam, alert and oriented x3. Pulse 63, blood pressure 150/63, respirations 18, temperature is 97.6, pulse ox is 98% on room air. HEENT: Conjunctivae normal. NECK: No jugular venous distension. CARDIOVASCULAR: S1, S2, muffled. RESPIRATORY: Breath sound diminished at the bases, no rhonchi, no crackles. ABDOMEN: Soft, nontender. LEGS: No edema, no swelling. NERVOUS SYSTEM: No focal deficits. LABS: WBC is 8.3, hemoglobin is 12.5, APTT is 41.1, potassium 3.8. UA noted. ASSESSMENT: 1. Atrial fibrillation with fast ventricular rate, present on admission. 2. Urinary tract infection with possible sepsis, present on admission. 3. Troponin 0.235, possible acute [id number] elevation myocardial infarction, present on admission. 4. Change in mental status, possibly secondary to sepsis with acute on chronic encephalopathy metabolic, present on admission. 5. Increased WBC. 6. Hypernatremia secondary to dehydration, present on admission. 7. Increased random blood sugar. 8. History of dementia. 9. Hypertension, essential. 10. History of appendectomy. 11. NO CODE, NO CARDIOPULMONARY RESUSCITATION, NO VENTILATOR. RECOMMENDATION: Recommend to continue current medications and symptomatic treatment. Otherwise, continue with antibiotics. Closely with Cardiology. Guarded prognosis. Further recommendations to follow.
[2016-10-20] MEDS: LOSARTAN 50 MG TAB PO SCH (08:16)
[2016-10-20] MEDS: METOPROLOL TARTRATE 12.5 MG TAB PO SCH (08:16)
[2016-10-20] MEDS: SODIUM CHLORIDE 0.9% 1,000 ML IV SCH (08:18)
[2016-10-20] MEDS ORDERED: APIXABAN 2.5 MG TABLET PO SCH (11:00)
[2016-10-20] MEDS ORDERED: TRIAMTERENE-HCTZ 37.5-25MG 1 EACH CAP PO SCH (12:30)
--- NOTE | 2016-10-20 14:57 | P.PN ---
Subjective Principal diagnosis: Mental status changes This is a 81-year-old female who was transferred from [facility] with altered mental status.Patient was found to be bradycardic with heart rates in the 40s. She seemed to be in atrial fibrillation with slow ventricular response. Subsequently EKG showed evidence of A. fib with RVR. Upon coming to this emergency room, Patient converted back to sinus rhythm. At the time of my examination patient is alert, seems to be pleasant and oriented to the place. Heart rate today is remaining in the 60s, normal sinus rhythm. Patient was started on 12-1/2 mg of metoprolol tartrate yesterday, to be tolerating well. Objective - Vital Signs Vital signs: Vital Signs Temp 96.4 F L 10/20/16 12:00 Pulse 56 L 10/20/16 12:00 Resp 18 10/20/16 12:00 BP 134/63 10/20/16 12:00 Pulse Ox 96 10/20/16 12:00 Intake & Output 10/19/16 10/20/16 10/20/16 18:59 06:59 18:59 Intake Total 1182.292 393.492 934.499 Output Total 850 300 300 Balance 332.292 93.492 634.499 Weight 60.5 kg Intake: IV 276 240 280 Heparin Sodium,Porcine/ 136 120 D5w Pmx 25,000 unit In Dextrose/Water 1 500ml. bag @ 12 UNITS/KG/HR 14. 35 mls/hr IV .Q24H RAMIREZ Rx #:[id number] Sodium Chloride 0.9% 1, 140 240 160 000 ml @ 20 mls/hr IV . Q24H RAMIREZ Rx#:[id number] Intake, IV Titration 426.292 153.492 174.499 Amount Heparin Sodium,Porcine/ 326.292 153.492 174.499 D5w Pmx 25,000 unit In Dextrose/Water 1 500ml. bag @ 12 UNITS/KG/HR 14. 35 mls/hr IV .Q24H RAMIREZ Rx #:[id number] cefTRIAXone 1,000 mg In 100 Sodium Chloride 0.9% 50 ml @ 100 mls/hr IVPB Q24HR RAMIREZ Rx#:[id number] Oral 480 480 Output: Urine 850 300 300 Other: Voiding Method Toilet Incontinent # Voids 1 1 1 - Exam PHYSICAL EXAMINATION: HEENT: Head is atraumatic, normocephalic. Pupils equal, round. Neck is supple. There is no elevated jugular venous pressure. HEART EXAMINATION: Heart S1, S2 normal. No murmur or gallop heard. CHEST EXAMINATION: Lungs are clear to auscultation and precussion. No chest wall tenderness is noted on palpation or with deep breathing. ABDOMEN: Soft, nontender. Bowel sounds are heard. No organomegaly noted. EXTREMITIES: 2+ peripheral pulses with no evidence of peripheral edema and no calf tenderness noted. NEUROLOGIC patient is awake, alert and oriented -1. . - Labs CBC & Chem 7: 10/20/16 06:25 10/20/16 06:25 Labs: Abnormal Lab Results - Last 24 Hours (Table) 10/19/16 10/20/16 10/20/16 Range/Units 22:44 06:25 06:25 APTT 68.3 H 86.3 H (22.0-30.0) sec Chloride 108 H (98-107) mmol/L Assessment and Plan (1) Paroxysmal a-fib Status: Acute (2) Bradycardia Status: Acute (3) HTN (hypertension) Status: Acute (4) Urinary tract infection Status: Acute (5) Acute psychosis Status: Acute Plan: From cardiology's perspective, we'll initiate Eliquis 2-1/2 mg one tablet by mouth twice a day. Continue metoprolol tartrate 12-1/2 mg daily. We will follow this patient with you now on an as-needed basis only, please don't hesitate to call with any questions. DNP note has been reviewed, I agree with a documented findings and plan of care. Patient was seen and examined.
[2016-10-20 16:13] VITALS: BP 143/63; PULSE 51; TEMP 96.8
--- NOTE | 2016-10-21 12:29 | DS ---
DATE OF ADMISSION: 10/17/2016 DATE OF DISCHARGE: 10/20/2016 FINAL DIAGNOSES: 1. Atrial fibrillation with fast ventricular rate, present on admission. 2. Urinary tract infection with possible sepsis, present on admission. 3. Troponin 0.235, possible acute non-ST segment elevation myocardial infarction, present on admission. 4. Change in mental status, possibly secondary to sepsis with acute on chronic encephalopathy, metabolic present on admission. 5. Increased WBC. 6. Hypernatremia secondary to dehydration, present on admission. 7. Increased random blood sugar. 8. Hypertension, essential. 9. History of dementia, unspecified. 10. History of appendectomy. 11. NO CODE, NO CARDIOPULMONARY RESUSCITATION AND NO VENTILATOR. DISCHARGE DISPOSITION: The patient will be discharged in a stable condition with guarded prognosis. Cardiology cleared the patient for discharge. HISTORY OF PRESENT ILLNESS: This is an 81-year-old woman with a past medical history of multiple medical problems with atrial fibrillation, UTI and other medical history, treated symptomatically, improved significantly. Cardiology saw the patient. On exam, vitals are stable. CARDIOVASCULAR SYSTEM: S1, S2, muffled. RESPIRATIONS: Clear to auscultation. ABDOMEN: Soft. NERVOUS SYSTEM: No focal deficits. DISCHARGE ADVICE: 1. Diet is cardiac. 2. Activity limited until followup. 3. Follow up with Dr. Brock in 2 to 3 days. 4. Follow with Cardiology as recommended. Medications will be as follows: 1. Eliquis 2.5 mg p.o. b.i.d. 2. Ceftin 500 mg p.o. b.i.d. for 5 days. 3. Losartan 100 mg p.o. daily. 4. Lopressor 12.5 mg p.o. daily. 5. Exelon 4.5 mg b.i.d. 6. Dyazide 1 tablet p.o. daily. 7. Depakene 250 mg p.o. q.h.s. Once again, the patient will be discharged in a stable condition with guarded prognosis.
== END 2016-10-20 18:54 | disposition home or self-care (01) | DRG 871 ==
LOC: EC 05:08 → 6SEL 06:42
PROVIDERS: ADMIT Hospitalist; ATTEND Hospitalist
DX: A41.9 Sepsis, unspecified organism (principal); G93.41 Metabolic encephalopathy; I21.4 Non-ST elevation (NSTEMI) myocardial infarction; E87.0 Hyperosmolality and hypernatremia; I49.5 Sick sinus syndrome; I48.0 Paroxysmal atrial fibrillation; E86.0 Dehydration; N39.0 Urinary tract infection, site not specified; F03.90 Unspecified dementia, unspecified severity, without behavioral disturbance, psychotic disturbance, mood disturbance, and anxiety; I10 Essential (primary) hypertension; F23 Brief psychotic disorder; E87.6 Hypokalemia; Z79.899 Other long term (current) drug therapy; Z82.49 Family history of ischemic heart disease and other diseases of the circulatory system
CPT/HCPCS: 36415; 80048; 80053; 80164; 81001; 82550; 82553; 83735; 84439; 84443; 84481; 84484; 85025; 85610; 85730; 93005; 93306

== ENCOUNTER 2019-02-26 21:28 | Inpatient (IN) | payer BC, MEDICARE ==
[2019-02-26] MEDS ORDERED: ASPIRIN 81 MG PO STA (22:44)
--- NOTE | 2019-02-26 23:07 | XR ---
EXAMINATION TYPE: XR chest 2V DATE OF EXAM: 02/26/2019 COMPARISON: 10/17/2016 HISTORY: Chest pain TECHNIQUE: Frontal and lateral views of the chest are obtained. FINDINGS: There is no heart failure nor confluent pneumonic infiltrate. Costophrenic angles are jaquelin r. Thoracic aorta is atheromatous. There is no pleural effusion. IMPRESSION: No active cardiopulmonary disease. No change.
--- NOTE | 2019-02-26 23:14 | ED ---
General Adult HPI - General Chief complaint: Chest Pain Stated complaint: Chest pain Time Seen by Provider: 02/26/19 21:40 Source: family Mode of arrival: wheelchair Limitations: altered mental status, physical limitation - History of Present Illness Initial comments: Dictation was produced using [employer] dictation software. please excuse any grammatical, word or spelling errors. Chief Complaint: 84-year-old female past medical history of dementia presents with bilateral ear pain, headache and chest pain. History of Present Illness: Patient's symptoms have been ongoing for the last 2- 3 days. Her symptoms started with ear pain. Patient was also observed to be holding her head in between her hands. Patient his a history of dementia and history of multiple pain complaints without any serious pathology. Today she h ad an episode of chest pain. Family members decided to bring her to the emergency department today. Patient has history of dementia. She is an unreliable historian at this time. She does complain of bilateral ear pain. The ROS documented in this emergency department record has been reviewed and confirmed by me. Those systems with pertinent positive or negative responses have been documented in the HPI. All other systems are other negative and/or noncontributory. PHYSICAL EXAM: General Impression: Alert and oriented x3, not in acute distress HEENT: Normocephalic atraumatic, extra-ocular movements intact, pupils equal and reactive to light bilaterally, mucous membranes moist, tenderness with manipulation of the external ear, no drainage in the external auditory canal, furthermore no erythema. Tobacco membranes bilaterally are clear. Cardiovascular: Heart regular rate and rhythm, S1&S2 audible, no murmurs, rubs or gallops Chest: Lungs clear to auscultation bilaterally, no rhonchi, no wheeze, no rales Abdomen: Bowel sounds present, abdomen soft, non-tender, non-distended, no o rganomegaly Musculoskeletal: Pulses present and equal in all extremities, no peripheral edema Motor: no focal deficits noted Neurological: CN II-XII grossly intact, no focal motor or sensory deficits noted Skin: Intact with no visualized rashes Psych: Normal affect and mood ED course: 84 y Old female presents with bilateral ear pain, concerns for headache and chest pain. Vital signs on arrival are within acceptable limits. External auditory canals are clear. It is unclear what is causing patient's bilateral ear pain. Her ear exam is unremarkable. Patient is well-appearing at this time denies any headache currently.Lavatory evaluation obtained. Mild leukocytosis of 11.6, coag panel unremarkable. Metabolic panel is negative. First set of troponin is negative. Chest x-ray. CT is negative. Given patient's clinical presentation we will admit patient to observation for suture troponins and cardiology consultation. Is understandable and agreeable to disposition. EKG interpretation: Ventricular rate 79, normal sinus rhythm,. Interval 170, QS 106, QTC 458. No IA prolongation, no QTC prolongation, no ST or T-wave changes noted Overall, this EKG is unremarkable - Related Data Home Medications Medication Instructions Recorded Confirmed Divalproex Sodium [Depakote 250 mg PO BID 02/26/19 02/26/19 Sprinkle] Rivastigmine Tartrate 1.5 mg PO BID 02/26/19 02/26/19 [Rivastigmine] Previous Rx's Medication Instructions Recorded Apixaban [Eliquis] 2.5 mg PO BID tab 10/20/16 Allergies Allergy/AdvReac Type Severity Reaction Status Date / Time adhesive AdvReac Itching Verified 02/26/19 22:21 Review of Systems ROS Statement: Those systems with pertinent positive or pertinent negative responses have been documented in the HPI. ROS Other: All systems not noted in ROS Statement are negative. Past Medical History Past Medical History: Dementia, Hypertension History of Any Multi-Drug Resistant Organisms: None Reported Past Surgical History: Appendectomy, Section Additional Past Surgical History / Comment(s): pt having delusional thoughts, unsure if these surgeries are correct Past Anesthesia/Blood Transfusion Reactions: No Reported Reaction Past Psychological History: No Psychological Hx Reported Smoking Status: Never smoker Past Alcohol Use History: None Reported Past Drug Use History: None Reported - Past Family History Father Additional Family Medical History / Comment(s): Father at age 76 possibly from a myocardial infarction. Mother Additional Family Medical History / Comment(s): Mother at age 62 from a myocardial infarction. Brother(s) Additional Family Medical History / Comment(s): Patient has a total of 3 brothers and 1 sister who've all . Patient is unable to provide details. Patient has 1 son. General Exam Limitations: altered mental status, physical limitation Course Vital Signs 09/22/19 09/22/19 09/22/19 21:33 22:38 23:23 Temperature 97.6 F Pulse Rate 82 73 18 L Respiratory 18 18 71 H Rate Blood Pressure 130/70 118/54 117/54 O2 Sat by Pulse 99 98 97 Oximetry 02/27/19 00:43 Temperature 98.2 F Pulse Rate 78 Respiratory 16 Rate Blood Pressure 111/58 O2 Sat by Pulse 95 Oximetry Medical Decision Making - Lab Data Result diagrams: 02/26/19 23:20 02/26/19 23:20 Lab Results 02/26/19 02/26/19 02/26/19 Range/Units 23:20 23:20 23:20 WBC 11.6 H (3.8-10.6) k/uL RBC 4.36 (3.80-5.40) m/uL Hgb 12.6 (11.4-16.0) gm/dL Hct 38.7 (34.0-46.0) % MCV 88.8 (80.0-100.0) fL MCH 29.0 (25.0-35.0) pg MCHC 32.7 (31.0-37.0) g/dL RDW 15.0 (11.5-15.5) % Plt Count 314 (150-450) k/uL Neutrophils % 69 % Lymphocytes % 22 % Monocytes % 6 % Eosinophils % 2 % Basophils % 1 % Neutrophils # 8.0 H (1.3-7.7) k/uL Lymphocytes # 2.5 (1.0-4.8) k/uL Monocytes # 0.6 (0-1.0) k/uL Eosinophils # 0.2 (0-0.7) k/uL Basophils # 0.1 (0-0.2) k/uL PT 10.8 (9.0-12.0) sec INR 1.0 (<1.2) APTT 26.7 (22.0-30.0) sec Sodium 139 (137-145) mmol/L Potassium 4.4 (3.5-5.1) mmol/L Chloride 101 (98-107) mmol/L Carbon Dioxide 25 (22-30) mmol/L Anion Gap 13 mmol/L BUN 28 H (7-17) mg/dL Creatinine 0.59 (0.52-1.04) mg/dL Est GFR (CKD-EPI)AfAm >90 (>60 ml/min/1.73 sqM) Est GFR (CKD-EPI)NonAf 85 (>60 ml/min/1.73 sqM) Glucose 124 H (74-99) mg/dL Calcium 10.3 H (8.4-10.2) mg/dL Magnesium 2.2 (1.6-2.3) mg/dL Total Bilirubin 0.9 (0.2-1.3) mg/dL AST 34 (14-36) U/L ALT 35 (9-52) U/L Alkaline Phosphatase 132 H (38-126) U/L Troponin I (0.000-0.034) ng/mL Total Protein 7.8 (6.3-8.2) g/dL Albumin 3.8 (3.5-5.0) g/dL 02/26/19 Range/Units 23:20 WBC (3.8-10.6) k/uL RBC (3.80-5.40) m/uL Hgb (11.4-16.0) gm/dL Hct (34.0-46.0) % MCV (80.0-100.0) fL MCH (25.0-35.0) pg MCHC (31.0-37.0) g/dL RDW (11.5-15.5) % Plt Count (150-450) k/uL Neutrophils % % Lymphocytes % % Monocytes % % Eosinophils % % Basophils % % Neutrophils # (1.3-7.7) k/uL Lymphocytes # (1.0-4.8) k/uL Monocytes # (0-1.0) k/uL Eosinophils # (0-0.7) k/uL Basophils # (0-0.2) k/uL PT (9.0-12.0) sec INR (<1.2) APTT (22.0-30.0) sec Sodium (137-145) mmol/L Potassium (3.5-5.1) mmol/L Chloride (98-107) mmol/L Carbon Dioxide (22-30) mmol/L Anion Gap mmol/L BUN (7-17) mg/dL Creatinine (0.52-1.04) mg/dL Est GFR (CKD-EPI)AfAm (>60 ml/min/1.73 sqM) Est GFR (CKD-EPI)NonAf (>60 ml/min/1.73 sqM) Glucose (74-99) mg/dL Calcium (8.4-10.2) mg/dL Magnesium (1.6-2.3) mg/dL Total Bilirubin (0.2-1.3) mg/dL AST (14-36) U/L ALT (9-52) U/L Alkaline Phosphatase (38-126) U/L Troponin I <0.012 (0.000-0.034) ng/mL Total Protein (6.3-8.2) g/dL Albumin (3.5-5.0) g/dL Disposition Clinical Impression: Chest pain Disposition: ADMITTED IP TO THIS HOSP Condition: Fair Referrals: Grace Gray MD [Primary Care Provider] - 1-2 days Decision Time: 01:12
--- NOTE | 2019-02-26 23:18 | CT ---
EXAMINATION TYPE: CT brain wo con DATE OF EXAM: 02/26/2019 COMPARISON: None HISTORY: Chest pain Weakness CT DLP: mGycm Automated exposure control for dose reduction was used. FINDINGS: There is cerebral cortical atrophy. There is 2 cm area of hypodensity right anterior internal capsule . There is no mass effect nor midline shift. There is no sign of intracranial hemorrhage. Calvarium i s intact. IMPRESSION: OLD RIGHT INTERNAL CAPSULE LACUNAR INFARCT. CEREBRAL ATROPHY. NO ACUTE INTRACRANIAL ABNORMALITY.
[2019-02-26 23:31] LABS: Basophils # (A) 0.1 k/uL (0-0.2); Basophils % (A) 1 %; Eosinophils # (A) 0.2 k/uL (0-0.7); Eosinophils % (A) 2 %; HCT 38.7 % (34.0-46.0); HGB 12.6 gm/dL (11.4-16.0); Lymphocytes # (A) 2.5 k/uL (1.0-4.8); Lymphocytes % (A) 22 %; MCHC 32.7 g/dL (31.0-37.0); MCV 88.8 fL (80.0-100.0); Mean Platelet Volume 7.4; Monocytes # (A) 0.6 k/uL (0-1.0); Monocytes % (A) 6 %; Neutrophils % (A) 69 %; Platelet Count 314 k/uL (150-450); RBC 4.36 m/uL (3.80-5.40); WBC 11.6 k/uL (3.8-10.6)
[2019-02-26 23:44] LABS: Partial Thromboplastin Time 26.7 sec (22.0-30.0); Prothrombin Time 10.8 sec (9.0-12.0)
[2019-02-26 23:50] LABS: African American GFR (CKD) >90 (>60 ml/min/1.73 sqM); Albumin 3.8 g/dL (3.5-5.0); Anion Gap 13 mmol/L; Blood Urea Nitrogen 28 mg/dL (7-17); Calcium 10.3 mg/dL (8.4-10.2); Carbon Dioxide 25 mmol/L (22-30); Chloride 101 mmol/L (98-107); Glucose 124 mg/dL (74-99); Sodium 139 mmol/L (137-145); Total Bilirubin 0.9 mg/dL (0.2-1.3); Total Protein 7.8 g/dL (6.3-8.2)
[2019-02-26 23:53] LABS: ALT 35 U/L (9-52); AST 34 U/L (14-36); Alkaline Phosphatase 132 U/L (38-126); Magnesium 2.2 mg/dL (1.6-2.3); Potassium 4.4 mmol/L (3.5-5.1)
[2019-02-27] MEDS ORDERED: NITROGLYCERIN SL TABS 0.4 MG TAB SUBLINGUAL PRN (01:07)
[2019-02-27] MEDS: DONEPEZIL 5 MG TAB PO SCH (10:46)
[2019-02-27] MEDS: DIVALPROEX SPRINKLE 125 MG CAP.SPRINK PO SCH ×2 (10:46→21:34)
[2019-02-27] MEDS: APIXABAN 2.5 MG TABLET PO SCH ×2 (10:46→21:34)
[2019-02-27] MEDS: ACETAMINOPHEN TAB 325 MG TAB PO PRN (10:52)
--- NOTE | 2019-02-27 10:52 | P.CRDCN ---
History of Present Illness Consult date: 02/27/19 History of present illness: This is a 83-year-old female with history of severe dementia who was apparently brought to the emergency room with complaints of headache year pain and also possible some chest pain. Patient is unable to give any detailed history. She is pleasant andshe is in the hospital. She complains of some pain in the neck area. She doesn't seem to be in acute distress. Her cardiac enzymes are negative. EKG did not reveal any acute changes. Patient has history of atrial fibrillation which is paroxysmal. Patient is on anticoagulation therapy. EKG showed a nonspecific changes and insignificant Q waves in inferior leads. At this point there doesn't appear to be in any signs of acute coronary syndrome. We'll get an echocardiogram. If that is normal, no further cardiac workup at this time Review of Systems As per the chart Past Medical History Past Medical History: Dementia, Hypertension History of Any Multi-Drug Resistant Organisms: None Reported Past Surgical History: Appendectomy, Section Additional Past Surgical History / Comment(s): pt having delusional thoughts, unsure if these surgeries are correct Past Anesthesia/Blood Transfusion Reactions: No Reported Reaction Past Psychological History: No Psychological Hx Reported Smoking Status: Never smoker Past Alcohol Use History: None Reported Past Drug Use History: None Reported - Past Family History Father Additional Family Medical History / Comment(s): Father at age 76 possibly from a myocardial infarction. Mother Additional Family Medical History / Comment(s): Mother at age 62 from a myocardial infarction. Brother(s) Additional Family Medical History / Comment(s): Patient has a total of 3 brothers and 1 sister who've all . Patient is unable to provide details. Patient has 1 son. Medications and Allergies Home Medications Medication Instructions Recorded Confirmed Type Apixaban [Eliquis] 2.5 mg PO BID tab 10/20/16 02/26/19 Rx Divalproex Sodium [Depakote 250 mg PO BID 02/26/19 02/26/19 History Sprinkle] Rivastigmine Tartrate 1.5 mg PO BID 02/26/19 02/26/19 History [Rivastigmine] Allergies Allergy/AdvReac Type Severity Reaction Status Date / Time adhesive AdvReac Itching Verified 02/26/19 22:21 Physical Exam Vitals: Vital Signs Temp Pulse Pulse Resp BP BP Pulse Ox 02/27/19 07:57 98.0 F 72 16 138/61 96 02/27/19 05:51 98.2 F 66 14 122/55 100 02/27/19 00:43 98.2 F 78 16 111/58 95 02/26/19 23:23 18 L 71 H 117/54 97 02/26/19 22:38 73 18 118/54 98 02/26/19 21:33 97.6 F 82 18 130/70 99 Intake and Output 02/26/19 02/27/19 02/27/19 22:59 06:59 14:59 Other: Weight 68.039 kg GENERAL EXAM: Patient is alert and doesn't appear to be in any acute distress HEENT: Normocephalic. Normal reaction of pupils, equal size, normal range of extraocular motion. No erythema or exudates in the throat. NECK: No masses, no nuchal rigidity. CHEST: No chest wall deformity. LUNGS: [Equal air entry with no crackles or wheeze.] HEART: [S1 and S2 normal with no audible mumurs or gallops. Regular rhythm, femo rals equal on both sides..] ABDOMEN: No hepatosplenomegaly, normal bowel sounds, no guarding or rigidity. SKIN: No rashes CENTRAL NERVOUS SYSTEM: No focal deficits. EXTREMITIES: [No cyanosis, clubbing or edema.] Results 02/26/19 23:20 02/26/19 23:20 Cardiac Enzymes 02/26/19 02/26/19 02/27/19 Range/Units 23:20 23:20 00:48 AST 34 (14-36) U/L Troponin I <0.012 <0.012 (0.000-0.034) ng/mL 02/27/19 Range/Units 05:05 AST (14-36) U/L Troponin I <0.012 (0.000-0.034) ng/mL Coagulation 02/26/19 Range/Units 23:20 PT 10.8 (9.0-12.0) sec APTT 26.7 (22.0-30.0) sec CBC 02/26/19 Range/Units 23:20 WBC 11.6 H (3.8-10.6) k/uL RBC 4.36 (3.80-5.40) m/uL Hgb 12.6 (11.4-16.0) gm/dL Hct 38.7 (34.0-46.0) % Plt Count 314 (150-450) k/uL Comprehensive Metabolic Panel 02/26/19 Range/Units 23:20 Sodium 139 (137-145) mmol/L Potassium 4.4 (3.5-5.1) mmol/L Chloride 101 (98-107) mmol/L Carbon Dioxide 25 (22-30) mmol/L BUN 28 H (7-17) mg/dL Creatinine 0.59 (0.52-1.04) mg/dL Glucose 124 H (74-99) mg/dL Calcium 10.3 H (8.4-10.2) mg/dL AST 34 (14-36) U/L ALT 35 (9-52) U/L Alkaline Phosphatase 132 H (38-126) U/L Total Protein 7.8 (6.3-8.2) g/dL Albumin 3.8 (3.5-5.0) g/dL Current Medications Generic Name Dose Route Start Last Admin Trade Name Freq PRN Reason Stop Dose Admin Acetaminophen 650 mg 02/27/19 10:16 Tylenol Tab PO Q6HR PRN Fever and/ or Mild Pain Apixaban 2.5 mg 02/27/19 09:00 Eliquis PO BID [facility] Aspirin 325 mg 02/28/19 09:00 Aspirin PO DAILY [facility] Divalproex Sodium 250 mg 02/27/19 09:00 Depakote Sprinkle PO BID [facility] Donepezil HCl 5 mg 02/27/19 09:00 Aricept PO DAILY [facility] Nitroglycerin 0.4 mg 02/27/19 01:07 Nitrostat SUBLINGUAL Q5M PRN Chest Pain Intake and Output 02/26/19 02/27/19 02/27/19 22:59 06:59 14:59 Other: Weight 68.039 kg 02/26/19 23:20 02/26/19 23:20 EKG Interpretations (text) Sinus rhythm with nonspecific ST-T changes Assessment and Plan (1) Chest pain Current Visit: Yes Status: Acute Code(s): R07.9 - CHEST PAIN, UNSPECIFIED SNOMED Code(s): 74757160 (2) HTN (hypertension) Current Visit: No Status: Acute Code(s): I10 - ESSENTIAL (PRIMARY) HYPERTENSION SNOMED Code(s): 19731720 (3) Paroxysmal a-fib Current Visit: No Status: Acute Code(s): I48.0 - PAROXYSMAL ATRIAL F IBRILLATION SNOMED Code(s): 018625820 Plan: Get an echocardiogram. If that is normal, no further cardiac workup at this time. Continue current management
[2019-02-27 12:23] LABS: Appearance,Urine Cloudy (Clear); Bacteria,Urine Moderate /hpf; Bilirubin,Urine Negative (Negative); Blood,Urine Negative (Negative); Color,Urine Yellow; Glucose,Urine (UA) Negative (Negative); Ketones,Urine Negative (Negative); Leukocyte Esterase,Urine Large (Negative); Mucus,Urine Rare /hpf; Nitrite,Urine Positive (Negative); Protein,Urine Trace (Negative); RBC,Urine 2 /hpf (0-5); Squamous Epithelial Cell,Urine 4 /hpf (0-4); WBC,Urine 59 /hpf (0-5)
--- NOTE | 2019-02-27 16:00 | ECHOF ---
Referral Reason:chest pain MEASUREMENTS -------- HEIGHT: 157.5 cm WEIGHT: 68.0 kg BP: RVIDd: 2.2 cm (< 3.3) IVSd: 0.8 cm (0.6 - 1.1) LVIDd: 3.7 cm (3.9 - 5.3) LVPWd: 0.9 cm (0.6 - 1.1) IVSs: 1.8 cm LVIDs: 1.6 cm LVPWs: 1.7 cm LAESV Index (A-L): 23.20 ml/m Ao Diam: 2.7 cm (2.0 - 3.7) AV Cusp: 1.8 cm (1.5 - 2.6) LA Diam: 3.3 cm (2.7 - 3.8) MV EXCURSION: 13.189 mm (> 18.000) MV EF SLOPE: 61 mm/s (70 - 150) EPSS: 0.5 cm MV E Bonifacio: 0.71 m/s MV DecT: 215 ms MV A Bonifacio: 1.07 m/s MV E/A Ratio: 0.66 AR PHT: 356 ms RAP: 5.00 mmHg RVSP: 26.34 mmHg TAPSE: 23.82 mm FINDINGS -------- Sinus rhythm. This was a technically difficult study with suboptimal views. The left ventricular size is normal. Left ventricular wall thickness is normal. Overall left vent ricular systolic function is normal with, an EF between 55 - 60 %. The diastolic filling pattern is normal for the age of the patient 8.68. The right ventricle is normal in size. The right ventricular systolic function is normal. Normal LA size by volume 22+/-6 ml/m2. The right atrial size is normal. xx ml of Lumason was utilized for enhancement of images. The aortic valve was not well visualized. Trace amount of aortic regurgitation. The mitral valve is normal. Mild mitral regurgitation is present. The tricuspid valve appears structurally normal. Trace tricuspid regurgitation present. Right abby tricular systolic pressure is normal at < 35 mmHg. There is no pulmonic regurgitation present. The aortic root size is normal. IVC Not well visulized. There is a small, generalized pericardial effusion present. CONCLUSIONS -------- 1. Sinus rhythm. 2. This was a technically difficult study with suboptimal views. 3. The left ventricular size is normal. 4. Left ventricular wall thickness is normal. 5. Overall left ventricular systolic function is normal with, an EF between 55 - 60 %. 6. The diastolic filling pattern is normal for the age of the patient 8.68 7. Normal LA size by volume 22+/-6 ml/m2. 8. xx ml of Lumason was utilized for enhancement of images. 9. The aortic valve was not well visualized. 10. Trace amount of aortic regurgitation. 11. The mitral valve is normal. 12. Mild mitral regurgitation is present. 13. The tricuspid valve appears structurally normal. 14. Trace tricuspid regurgitation present. 15. Right ventricular systolic pressure is normal at < 35 mmHg. 16. There is no pulmonic regurgitation present. 17. The aortic root size is normal. 18. IVC Not well visulized. 19. There is a small, generalized pericardial effusion present. ENGINE REPAIR SUPERVISOR: Jessika Luis RDCS
[2019-02-27] MEDS: NYSTATIN 100,000 UNIT/GM POWD 15 GM TOPICAL SCH (21:34)
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
[2019-02-28 02:50] LABS: Cholesterol 166 mg/dL (<200); HDL Cholesterol 36 mg/dL (40-60); LDL Cholesterol,Calculated 112 mg/dL (0-99); Triglycerides 92 mg/dL (<150)
[2019-02-28 08:11] LABS: Basophils # (A) 0.1 k/uL (0-0.2); Basophils % (A) 1 %; Eosinophils # (A) 0.1 k/uL (0-0.7); Eosinophils % (A) 1 %; HCT 34.1 % (34.0-46.0); Lymphocytes # (A) 1.9 k/uL (1.0-4.8); Lymphocytes % (A) 21 %; MCH 28.5 pg (25.0-35.0); MCHC 32.2 g/dL (31.0-37.0); MCV 88.4 fL (80.0-100.0); Mean Platelet Volume 7.1; Monocytes # (A) 0.5 k/uL (0-1.0); Monocytes % (A) 5 %; Neutrophils # (A) 6.5 k/uL (1.3-7.7); Neutrophils % (A) 72 %; Platelet Count 284 k/uL (150-450); RBC 3.86 m/uL (3.80-5.40); RDW 13.5 % (11.5-15.5)
[2019-02-28 08:32] LABS: African American GFR (CKD) >90 (>60 ml/min/1.73 sqM); Anion Gap 9 mmol/L; Blood Urea Nitrogen 14 mg/dL (7-17); Calcium 9.3 mg/dL (8.4-10.2); Carbon Dioxide 27 mmol/L (22-30); Chloride 104 mmol/L (98-107); Glucose 105 mg/dL (74-99); Potassium 4.1 mmol/L (3.5-5.1); Sodium 140 mmol/L (137-145)
[2019-02-28] MEDS: ASPIRIN 325 MG TAB PO SCH (10:15)
[2019-02-28] MEDS: APIXABAN 2.5 MG TABLET PO SCH ×2 (10:15→22:10)
[2019-02-28] MEDS: NYSTATIN 100,000 UNIT/GM POWD 15 GM TOPICAL SCH ×2 (10:16→22:10)
[2019-02-28] MEDS: DIVALPROEX SPRINKLE 125 MG CAP.SPRINK PO SCH ×2 (10:16→22:10)
[2019-02-28] MEDS: DONEPEZIL 5 MG TAB PO SCH (10:34)
--- NOTE | 2019-02-28 15:29 | P.PN ---
Subjective 84-year-old the female with the advanced dementia came in with altered mental status which is probably due to lucida nonpleuritic. His of dementia although patient is being treated for urinary tract infection because of significantly abnormal urine, antibiotics will be discontinued if urine cultures are negative. And if they're positive we will complete course of 3-5 day of therapy. Her confusion is probably because of her dementia itself. Patient didn't have fever but had leukocytosis which can be reactive. Review of systems: Unable to obtain All inpatient medications were reviewed and appropriate changes in these medications as dictated in the interval history and assessment and plan. Objective - Vital Signs Vital signs: Vital Signs Temp 98.3 F 02/28/19 12:20 Pulse 70 02/28/19 12:20 Resp 18 02/28/19 12:20 BP 98/61 02/28/19 12:20 Pulse Ox 95 02/28/19 12:20 Intake & Output 02/27/19 02/28/19 02/28/19 18:59 06:59 18:59 Intake Total 357 290 650 Balance 357 290 650 Intake: Intake, IV Titration 50 50 Amount cefTRIAXone 1 gm In 50 50 Sodium Chloride 0.9% 50 ml @ 100 mls/hr IVPB Q24HR [facility] Rx#:[id number] Oral 357 240 600 Other: Voiding Method Bedside Commode Diaper # Voids 2 2 - Exam GEN. APPEARANCE: alert, in no apparent distress HEAD EXAM: atraumatic, normocephalic, normal inspection EYE EXAM: PERRLA. No pallor or Icterus ENT EXAM: normal exam, mucous membranes moist NECK EXAM: normal inspection. Absent: tenderness, meningismus, full ROM, lymphadenopathy RESPIRATORY EXAM: normal lung sounds bilaterally. Absent: respiratory distress, wheezes, rales, rhonchi, stridor CARDIOVASCULAR EXAM: S 1 and S2 heard, No additional sounds. GI/ABDOMINAL EXAM: soft, normal bowel sounds. Absent: distended, tenderness, gu arding, rebound, rigid EXTREMITIES EXAM: normal inspection, full ROM, normal capillary refill. Abs ent: tenderness, pedal edema, joint swelling, calf tenderness GENITOURINARY EXAM: Patient has excoriations of the labial folds. Examination of the anal area -no lesions seen. NEUROLOGICAL EXAM: alert, oriented, follows simple commands. No focal deficits. - Labs CBC & Chem 7: 02/28/19 07:37 02/28/19 07:37 Labs: Abnormal Lab Results - Last 24 Hours (Table) 02/27/19 02/28/19 02/28/19 Range/Units 05:05 07:37 07:37 Hgb 11.0 L (11.4-16.0) gm/dL Glucose 105 H (74-99) mg/dL LDL Cholesterol, Calc 112 H (0-99) mg/dL HDL Cholesterol 36 L (40-60) mg/dL Microbiology - Last 24 Hours (Table) 02/27/19 17:20 Urine Culture - Preliminary Urine,Voided Assessment and Plan Plan: Chest pain-ruled out ACS, cardiology evaluated the patient no further intervention at this time Possibility of Urinary tract infection that cannot be completely ruled out and if urine cultures are negative antibiotics will be discontinued Possibility of Acute encephalopathy secondary to above Advanced dementia: Most probably vascular dementia although I cannot completely rule out dementia of Alzheimer's type Hypertension
[2019-02-28] MEDS ORDERED: QUEtiapine 25 MG TAB PO PRN (21:00)
[2019-03-01] MEDS: ACETAMINOPHEN TAB 325 MG TAB PO PRN (08:42)
[2019-03-01] MEDS: APIXABAN 2.5 MG TABLET PO SCH ×2 (08:42→20:48)
[2019-03-01] MEDS: ASPIRIN 325 MG TAB PO SCH (08:42)
[2019-03-01] MEDS: DIVALPROEX SPRINKLE 125 MG CAP.SPRINK PO SCH ×2 (08:43→20:48)
[2019-03-01] MEDS: NYSTATIN 100,000 UNIT/GM POWD 15 GM TOPICAL SCH ×2 (08:45→20:48)
[2019-03-01] MEDS: DONEPEZIL 5 MG TAB PO SCH (13:22)
[2019-03-01] MEDS ORDERED: KETOROLAC 30 MG/ML 1 ML VIAL IVP PRN (14:07)
--- NOTE | 2019-03-01 14:42 | CDI ---
Documentation Clarification Form Date: 03/01/2019 2:14:00 PM From: Latonya Childers RN, CCDS Admit Date: 02/28/2019 3:35:00 PM Patient Name: Ana Luisa Wolf Visit Number: [id number] Discharge Date: ATTENTION: The Clinical Documentation Specialists (CDI) and [facility] Coding Staff appreciate your assistance in clarifying documentation. Please respond to the clarification below the line at the bottom and electronically sign. The CDI & [facility] Coding staff will review the response and follow-up if needed. Please note: Queries are made part of the Legal Health Record. If you have any questions, please contact the author of this message via ITS. Dr. Rosemarie Rojas Acute Encephalopathy was documented in the H/P and additional clarification is needed. History/Risk Factors: Dementia, Hypertension Clinical Indicators: 84-year-old female with chest pain, ear pain. She was noted to have altered mental status, and abnormal urine. Vital signs: 111/58 78 16 98.2 Labs: WBC 11.6, UA: Urine nitrite-Positive, Ur Leukocyte Esterase -Large; Urine culture: Preliminary: Gram neg Bacilli CT/MRI Brain: Old right internal capsule Lacunar infract. Cerebral atrophy. No acute intracranial abnormality Treatment: Neurochecks per protocol IV Rocephin Monitor Labs: CBC In your professional opinion, can you please clarify the specific type of Encephalopathy, if known? Metabolic Encephalopathy Other, please specify Unable to determine (Last Revision: September 2017) MTDD
--- NOTE | 2019-03-01 15:03 | P.PN ---
Subjective Progress Note Date: 03/01/19 Principal diagnosis: 84-year-old the female with the advanced dementia came in with altered mental status which is probably due to lucida nonpleuritic. History of dementia although patient is being treated for urinary tract infection because of significantly abnormal urine, antibiotics will be discontinued if urine cultures are negative. And if they're positive we will complete course of 3-5 day of therapy. Her confusion is probably because of her dementia itself. Patient didn't have fever but had leukocytosis which can be reactive. 03/01/2019 Patient is sitting up at the side of the bed this morning currently working on standing up and working with PT/OT. Patient is stating that she is having some face and ear pain and states that the Tylenol isn't helping. IV Toradol will be added as needed. Patient denies any chest pain, palpitations, or shortness of breath at this time. Is currently on IV antibiotics and urine cultures thus far have grown gram-negative bacilli and awaiting finalization of cultures. Will continue antibiotics at this time. Case management and social work are following closely as patient would benefit from a subacute rehab. Family is looking into possible places at this time. Guarded prognosis. Objective - Vital Signs Vital signs: Vital Signs Temp 97.6 F 03/01/19 11:36 Pulse 73 03/01/19 14:21 Resp 16 03/01/19 14:21 BP 106/59 03/01/19 11:36 Pulse Ox 95 03/01/19 11:36 Intake & Output 02/28/19 03/01/19 03/01/19 18:59 06:59 18:59 Intake Total 650 120 Balance 650 120 Intake: Intake, IV Titration 50 Amount cefTRIAXone 1 gm In 50 Sodium Chloride 0.9% 50 ml @ 100 mls/hr IVPB Q24HR [facility] Rx#:[id number] Oral 600 120 Other: Voiding Method Bedside Commode Bedside Commode Bedside Commode Diaper Diaper Diaper # Voids 2 2 # Bowel Movements 1 - Exam GEN. APPEARANCE: alert, in no apparent distress. Vital signs are stable. Temp is 97.6F, pulse is 73, respirations are 16, blood pressure is 106/59, oxygen saturation is 95% on room air. HEAD EXAM: atraumatic, normocephalic, normal inspection EYE EXAM: PERRLA. No pallor or Icterus ENT EXAM: normal exam, mucous membranes moist NECK EXAM: normal inspection. Absent: tenderness, meningismus, full ROM, lymphadenopathy RESPIRATORY EXAM: Clear to auscultation with no wheezing, rhonchi, or crackles noted. CARDIOVASCULAR EXAM: S 1 and S2 heard, No additional sounds. GI/ABDOMINAL EXAM: soft, normal bowel sounds. Nontender EXTREMITIES EXAM: normal inspection, full ROM, normal capillary refill. No swelling or edema noted NEUROLOGICAL EXAM: alert, oriented, pleasantly confused at times. follows simple commands. No focal deficits. Mild diffuse weakness. - Labs CBC & Chem 7: 02/28/19 07:37 02/28/19 07:37 Labs: Microbiology - Last 24 Hours (Table) 02/27/19 17:20 Urine Culture - Preliminary Urine,Voided Gram Neg Bacilli Assessment and Plan Assessment: Chest pain-ruled out ACS, cardiology evaluated the patient no further intervention at this time Possibility of Urinary tract infection that cannot be completely ruled out and if urine cultures are negative antibiotics will be discontinued. Urine cultures thus far show gram-negative bacilli awaiting finalization. Possibility of Acute encephalopathy secondary to possible urinary tract infection or advancing dementia Advanced dementia: Most probably vascular dementia although I cannot completely rule out dementia of Alzheimer's type Hypertension Recommendations and discussion: Recommend to continue current medications, management, and symptomatic treatment. Patient to continue working with PT/OT for strengthening mobility. Currently awaiting for placement to a subacute rehab once the family has decided were they would like her to go. Continue with current IV antibiotics until urine cultures are finalized. Guarded prognosis. Further recommendations to follow. Possible discharge in 24-48 hours.
[2019-03-02] MEDS: ACETAMINOPHEN TAB 325 MG TAB PO PRN ×2 (04:40→20:26)
[2019-03-02] MEDS: ASPIRIN 325 MG TAB PO SCH (08:47)
[2019-03-02] MEDS: APIXABAN 2.5 MG TABLET PO SCH ×2 (08:48→20:23)
[2019-03-02] MEDS: FAMOTIDINE 20 MG TAB PO SCH (08:48)
[2019-03-02] MEDS: DIVALPROEX SPRINKLE 125 MG CAP.SPRINK PO SCH ×2 (08:48→20:23)
[2019-03-02] MEDS: NYSTATIN 100,000 UNIT/GM POWD 15 GM TOPICAL SCH ×2 (08:54→20:27)
[2019-03-02] MEDS: DONEPEZIL 5 MG TAB PO SCH (09:13)
--- NOTE | 2019-03-02 14:38 | P.PN ---
Subjective Progress Note Date: 03/02/19 Principal diagnosis: 84-year-old the female with the advanced dementia came in with altered mental status which is probably due to lucida nonpleuritic. History of dementia although patient is being treated for urinary tract infection because of significantly abnormal urine, antibiotics will be discontinued if urine cultures are negative. And if they're positive we will complete course of 3-5 day of therapy. Her confusion is probably because of her dementia itself. Patient didn't have fever but had leukocytosis which can be reactive. 03/01/2019 Patient is sitting up at the side of the bed this morning currently working on standing up and working with PT/OT. Patient is stating that she is having some face and ear pain and states that the Tylenol isn't helping. IV Toradol will be added as needed. Patient denies any chest pain, palpitations, or shortness of breath at this time. Is currently on IV antibiotics and urine cultures thus far have grown gram-negative bacilli and awaiting finalization of cultures. Will continue antibiotics at this time. Case management and social work are following closely as patient would benefit from a subacute rehab. Family is looking into possible places at this time. Guarded prognosis. 03/02/2019 Patient is sitting up in the chair in no acute distress. Patient is slightly lethargic but easily arousable. Patient currently denies any chest pain, palpitations, or shortness of breath at this time. Patient is afebrile. Urine cultures finalized today show E. coli and currently on IV Rocephin. No acute events overnight. Patient will continue to work with PT/OT she is requiring some assistance with position changes and ambulation. Awaiting prior authorization for subacute rehab at [facility]. Guarded prognosis. Objective - Vital Signs Vital signs: Vital Signs Temp 97.4 F L 03/02/19 12:19 Pulse 72 03/02/19 12:19 Resp 16 03/02/19 12:19 BP 112/64 03/02/19 12:19 Pulse Ox 95 03/02/19 12:19 Intake & Output 03/01/19 03/02/19 03/02/19 18:59 06:59 18:59 Intake Total 480 Balance 480 Intake: Oral 480 Other: Voiding Method Bedside Commode Bedside Commode Bedside Commode Diaper Diaper Diaper # Voids 2 1 # Bowel Movements 1 - Exam GEN. APPEARANCE: alert, in no apparent distress. Vital signs are stable. Temp is 98.5, pulse is 82, respirations are 16, blood pressure is 153/79, oxygen saturation is 96% on room air. HEAD EXAM: atraumatic, normocephalic, normal inspection EYE EXAM: PERRLA. No pallor or Icterus ENT EXAM: normal exam, mucous membranes moist NECK EXAM: normal inspection. Absent: tenderness, meningismus, full ROM, lymphadenopathy RESPIRATORY EXAM: Clear to auscultation with no wheezing, rhonchi, or crackles noted. CARDIOVASCULAR EXAM: S 1 and S2 heard, No additional sounds. GI/ABDOMINAL EXAM: soft, normal bowel sounds. Nontender EXTREMITIES EXAM: normal inspection, full ROM, normal capillary refill. No swelling or edema noted NEUROLOGICAL EXAM: alert, oriented, pleasantly confused at times. follows simple commands. No focal deficits. Mild diffuse weakness. - Labs CBC & Chem 7: 02/28/19 07:37 02/28/19 07:37 Labs: Microbiology - Last 24 Hours (Table) 02/27/19 17:20 Urine Culture - Preliminary Urine,Voided Escherichia coli Assessment and Plan Assessment: Chest pain-ruled out ACS, cardiology evaluated the patient no further intervention at this time Possibility of Urinary tract infection that cannot be completely ruled out and if urine cultures are negative antibiotics will be discontinued. Urine cultures are finalized today showing E. coli. Possibility of Acute metabolic encephalopathy secondary to possible urinary tract infection or advancing dementia Advanced dementia: Most probably vascular dementia although I cannot completely rule out dementia of Alzheimer's type Hypertension Recommendations and discussion: Recommend to continue current medications, management, and symptomatic treatment. Patient to continue working with PT/OT for strengthening mobility. Currently awaiting for placement to a subacute rehab at [facility]. Guarded prognosis. Further recommendations to follow. Possible discharge in 24-48 hours once authorization has been obtained.
--- NOTE | 2019-03-03 10:41 | P.DS ---
Providers Date of admission: 02/28/19 15:35 Expected date of discharge: 03/03/19 Attending physician: Chioma Tierney Consults: 02/27/19 01:07 Consult Physician Urgent Consulting Provider: Alex Gonzalez Consult Reason/Comments: chest pain Do you want consulting provider notified?: Yes Primary care physician: [facility] Hospital Course: Final diagnosis Chest pain: Ruled out ACS Urinary tract infection Possible acute metabolic encephalopathy secondary to possible urinary tract infection her advancing dementia Advanced dementia: Most probably vascular dementia although cannot completely rule out dementia of Alzheimer's type Hypertension Discharge disposition Agent is being discharged in a stable condition with guarded prognosis to [facility] for continued PT/OT therapy. Patient will complete a short course of oral antibiotics in the form of Ceftin 500 mg twice daily for 3 days. Total time taken is 35 minutes History of present illness This is an 84-year-old female with advanced dementia who came in with altered mental status and was being treated for urinary tract infection. Patient was being closely monitored. Finalization of the urine culture showed E. coli which is pansensitive and will be continued on a short course of oral antibiotics in the form of Ceftin for 3 days upon discharge. PT/OT continued working with the patient she is requiring minimal assistance due to weakness and unsteady gait. Patient will continue with PT/OT therapy at the rehab facility. Currently patient denies any shortness of breath, chest pain, or palpitations at this time. Patient is afebrile. Patient denies any dysuria or burning with urination. Patient denies any nausea or vomiting and has been tolerating diet. Currently patient's condition is stable with much improvement and will be going to [facility] today. Guarded prognosis. On exam vital signs are stable. Blood pressure is 141/62, pulse is 65, respirations are 18, temp is 97.9F, oxygen saturation is 97% on room air. S1 and S2 are heard. Respiratory system shows clear to auscultation. Abdomen is soft and nontender. Nervous system shows no focal deficits with mild diffuse weakness. Please refer to medication reconciliation sheet for a list of medications. Patient Condition at Discharge: Fair Plan - Discharge Summary Discharge Rx Participant: No New Discharge Prescriptions: New Aspirin 325 mg PO DAILY tab Cefuroxime Axetil [Ceftin] 500 mg PO BID 3 Days #6 tab Nystatin 100,000 Unit/gm Powd [Mycostatin Powder] 1 applic TOPICAL BID applic Famotidine [Pepcid] 20 mg PO DAILY tab QUEtiapine [SEROquel] 25 mg PO HS PRN #6 tab PRN Reason: Agitation Acetaminophen Tab [Tylenol] 650 mg PO Q6HR PRN tab PRN Reason: Fever and/ or Mild Pain Continue Apixaban [Eliquis] 2.5 mg PO BID tab Rivastigmine Tartrate [Rivastigmine] 1.5 mg PO BID Divalproex Sodium [Depakote Sprinkle] 250 mg PO BID Discharge Medication List Apixaban [Eliquis] 2.5 mg PO BID tab 10/20/16 [Rx] Divalproex Sodium [Depakote Sprinkle] 250 mg PO BID 02/26/19 [History] Rivastigmine Tartrate [Rivastigmine] 1.5 mg PO BID 02/26/19 [History] Acetaminophen Tab [Tylenol] 650 mg PO Q6HR PRN tab 03/03/19 [Rx] Aspirin 325 mg PO DAILY tab 03/03/19 [Rx] Cefuroxime Axetil [Ceftin] 500 mg PO BID 3 Days #6 tab 03/03/19 [Rx] Famotidine [Pepcid] 20 mg PO DAILY tab 03/03/19 [Rx] Nystatin 100,000 Unit/gm Powd [Mycostatin Powder] 1 applic TOPICAL BID applic 03/03/19 [Rx] QUEtiapine [SEROquel] 25 mg PO HS PRN #6 tab 03/03/19 [Rx] Follow up Appointment(s)/Referral(s): Grace Gray MD [Primary Care Provider] - 1-2 days Activity/Diet/Wound Care/Special Instructions: [place] [facility] [place] Please complete a 3 day course of oral antibiotics Continue current diet Follow-up with primary care provider upon discharge Discharge Disposition: TRANSFER TO SNF/ECF
[2019-03-03] MEDS: DIVALPROEX SPRINKLE 125 MG CAP.SPRINK PO SCH (10:49)
[2019-03-03] MEDS: ASPIRIN 325 MG TAB PO SCH (10:55)
[2019-03-03] MEDS: APIXABAN 2.5 MG TABLET PO SCH (10:55)
[2019-03-03] MEDS: FAMOTIDINE 20 MG TAB PO SCH (10:55)
[2019-03-03] MEDS: NYSTATIN 100,000 UNIT/GM POWD 15 GM TOPICAL SCH (10:59)
[2019-03-03] MEDS: DONEPEZIL 5 MG TAB PO SCH (11:03)
[2019-03-03 12:08] VITALS: BP 128/79; PULSE 82; RESP 16; TEMP 98.2
== END 2019-03-03 13:18 | DRG 689 ==
LOC: EC 21:28 → 3SCARD 02-27 01:07 → 3NMEDONC 02-27 14:19 → OBSVTOIN 02-28 15:35
PROVIDERS: ADMIT Hospitalist; ATTEND Hospitalist
DX: N39.0 Urinary tract infection, site not specified (principal); G93.41 Metabolic encephalopathy; G30.9 Alzheimer's disease, unspecified; F02.80 Dementia in other diseases classified elsewhere, unspecified severity, without behavioral disturbance, psychotic disturbance, mood disturbance, and anxiety; E78.5 Hyperlipidemia, unspecified; E78.00 Pure hypercholesterolemia, unspecified; B96.20 Unspecified Escherichia coli [E. coli] as the cause of diseases classified elsewhere; F01.50 Vascular dementia, unspecified severity, without behavioral disturbance, psychotic disturbance, mood disturbance, and anxiety; I10 Essential (primary) hypertension; I48.0 Paroxysmal atrial fibrillation; Z79.01 Long term (current) use of anticoagulants; Z79.899 Other long term (current) drug therapy; Z82.49 Family history of ischemic heart disease and other diseases of the circulatory system; Z90.710 Acquired absence of both cervix and uterus; Z98.42 Cataract extraction status, left eye; Z98.41 Cataract extraction status, right eye
CPT/HCPCS: 36415; 70450; 71046; 80048; 80053; 80061; 81001; 83735; 84484; 85025; 85610; 85730; 87077; 87086; 87186; 93005; 93306; 94760; 99285